=== PATIENT | male | born 1960 | race Caucasian/White ===

== ENCOUNTER 2017-07-02 16:23 | Inpatient (IN) ==
[2017-07-02 17:00] LABS: Basophils % 0.5 %; Eosinophils # 0.4 K/mcL (0.0-0.6); Eosinophils % 5.9 %; Hemoglobin 13.7 g/dL (12.9-16.9); Immature Granulocytes % 0.2 % (0-4); Lymphocytes # 2.1 K/mcL (0.6-4.6); Mean Corpuscular HGB Conc 32.6 g/dL (31.6-35.5); Mean Corpuscular Volume 92.1 fL (83.0-100.0); Mean Platelet Volume 10.5 fL (9.4-12.4); Monocytes # 0.9 K/mcL (0.0-1.3); Monocytes % 14.3 %; Platelet Count 148 K/mcL (140-400); Red Blood Count 4.56 M/mcL (4.19-5.50); Red Cell Distribution Width 14.5 % (11.5-14.5); Segmented Neutrophils % 46.1 %
[2017-07-02 17:06] LABS: Bilirubin,Urine Negative (Negative); Blood,Urine Negative (Negative); Clarity,Urine Clear (Clear); Color,Urine Yellow (Yellow); Glucose,Urine (UA) Normal (Normal); Ketones,Urine Negative (Negative); Leukocyte Esterase,Urine Negative (Negative); Nitrite,Urine Negative (Negative); Protein,Urine Negative (Neg-Trace); Specific Gravity,Urine 1.022 (1.010-1.025); Urobilinogen,Urine Normal (Normal)
[2017-07-02 17:12] LABS: Amphetamine Screen,Urine Negative ng/mL (Cutoff=1000); Barbiturate Screen,Urine Negative ng/mL (Cutoff=200); Benzodiazepines Screen,Urine Negative ng/mL (Cutoff=200); Cannabinoid Screen,Urine Negative ng/mL (Cutoff = 50); Cocaine Screen,Urine Positive ng/mL (Cutoff= 300); Opiate Screen,Urine Negative ng/mL (Cutoff=300); Phencyclidine Screen,Urine Negative ng/mL (Cutoff=25)
[2017-07-02 17:22] LABS: BUN/Creatinine Ratio 19 (6-26); Blood Urea Nitrogen 16 mg/dL (6-20); Carbon Dioxide 29 mEq/L (23-29); Chloride 106 mEq/L (98-107); Glucose 103 mg/dL (70-105); Osmolality,Calculated 291 (280-300); Sodium 140 mEq/L (136-145); eGFR For African Americans > 60 (> 60); eGFR For Non-African Americans > 60 (> 60)
[2017-07-02 17:23] LABS: Acetaminophen < 1.0 mcg/mL (10-30); Ethanol < 10 mg/dL (0-10); Salicylate < 5.0 mg/dL (15.0-30.0)
--- NOTE | 2017-07-02 18:27 | Emergency Department Note ---
Disposition Clinical Impression: Auditory hallucination Disposition: Still a Patient Referrals: NONE,PCP [Primary Care Provider] - Forms: ED Satisfaction Letter Psych HPI - General Chief Complaint: ED Psychiatric Symptoms Stated Complaint: Hearing voices Time Seen by Provider: 07/02/17 16:24 Source: patient Nursing Notes Reviewed: Yes Vital Signs Reviewed: Yes - History of Present Illness HPI Narrative: Presents with auditory hallucinations which has gone on for the last several days the patient has had this in the past and he does have a history of suicidal ideation however is not suicidal at this time. No visual hallucinations. He does have a history of psychiatric disease. He does not have any respiratory symptoms, fevers, blood in the urine or stool. Social history: Stopped smoking 2 days ago, occasional alcohol, states is not used any drugs recently - Related Data Home Medications Medication Instructions Recorded Confirmed Buspirone HCl [Buspar] 10 mg PO TID 01/07/15 02/08/15 Previous Rx's Medication Instructions Recorded Gabapentin [Neurontin] 300 mg PO TID 30 Days capsule 02/12/15 Mirtazapine [Remeron] 15 mg PO HS #30 tablet 02/12/15 Allergies Allergy/AdvReac Type Severity Reaction Status Date / Time quetiapine [From Seroquel] AdvReac Mild Itching Verified 05/19/17 17:03 Review of Systems: Constitutional: No fever Vision: No blurred vision ENT: No rhinorrhea Respiratory: No cough Allergic: No allergies : No blood in urine GI: No blood in stool Hematologic: No bruising Dermatologic: No skin rash Musculoskeletal: No pain in the extremities Neuro: No numbness of the extremities Review of Systems: As Per HPI Past Medical History - Past Medical History Medical history: Reports: hepatitis, liver disease, renal disease, other Surgical history: Reports: cholecystectomy, other Psychiatric history: Reports: anxiety, bipolar, depression, panic disorder, prior suicide attempt, previous psychiatric hospitalization - Social History Smoking Status: Former smoker Smokeless Tobacco Status: No Alcohol use: Reports: none Drug use: Reports: opiates, marijuana Physical Exam CONSTITUTIONAL: Alert and oriented X3, well-nourished, well appearing, in no apparent distress HEAD: Normocephalic; atraumatic. EYES: PERRL, no scleral icterus. NOSE: The nose is normal in appearance without rhinorrhea RESP: Normal chest excursion with respiration; breath sounds clear and equal bilaterally; no wheezes, rhonchi, or rales CARD: Regular rhythm, without murmurs, rub or gallop ABD: Non-distended; non-tender, soft,without rigidity, rebound or guarding SKIN: Normal for age and race; warm and dry; no apparent lesions - General Limitations: no limitations General appearance: alert Course Vital Signs Temperature 98.8 F 07/02/17 17:11 Pulse Rate 88 07/02/17 17:11 Respiratory Rate 18 07/02/17 17:11 Blood Pressure 136/86 07/02/17 17:11 O2 Sat by Pulse Oximetry 96 07/02/17 17:11 Temperature 98.8 F 07/02/17 17:11 Pulse Rate 88 07/02/17 17:11 Respiratory Rate 18 07/02/17 17:11 Blood Pressure 136/86 07/02/17 17:11 O2 Sat by Pulse Oximetry 96 07/02/17 17:11 Oxygen Delivery Oxygen Delivery Room Air Psych - MDM Narrative Medical decision making narrative: patient is bright and alert and wel he does have testing which was ordered and I did review the results and it is positive for cocaine and the patient will be seen by the psychiatric services and disposition pending their assessment. [address] Pressley on change of shift pending 1A eval 1856 - Lab Data Result diagrams: 07/02/17 16:47 07/02/17 16:47 Lab Results 07/02/17 07/02/17 07/02/17 Range/Units 16:47 16:47 16:55 WBC 6.4 (4.3-11.1) K/mcL RBC 4.56 (4.19-5.50) M/mcL Hgb 13.7 (12.9-16.9) g/dL Hct 42.0 (37.5-50.1) % MCV 92.1 (83.0-100.0) fL MCH 30.0 (28.0-33.3) pg MCHC 32.6 (31.6-35.5) g/dL RDW 14.5 (11.5-14.5) % Plt Count 148 (140-400) K/mcL MPV 10.5 (9.4-12.4) fL Immature Gran % 0.2 (0-4) % Seg Neutrophils % 46.1 % Lymphocytes % 33.0 % Monocytes % 14.3 % Eosinophils % 5.9 % Basophils % 0.5 % Neutrophils # 3.0 (1.6-8.9) K/mcL Lymphocytes # 2.1 (0.6-4.6) K/mcL Monocytes # 0.9 (0.0-1.3) K/mcL Eosinophils # 0.4 (0.0-0.6) K/mcL Basophils # 0.0 (0.0-0.2) K/mcL Sodium 140 (136-145) mEq/L Potassium 4.0 (3.5-5.1) mEq/L Chloride 106 (98-107) mEq/L Carbon Dioxide 29 (23-29) mEq/L BUN 16 (6-20) mg/dL Creatinine 0.84 (0.70-1.30) mg/dL Est GFR ( Amer) > 60 (> 60) Est GFR (Non-Af Amer) > 60 (> 60) BUN/Creatinine Ratio 19 (6-26) Glucose 103 (70-105) mg/dL Calculated Osmolality 291 (280-300) Calcium 9.0 (8.6-10.3) mg/dL Urine Color Yellow (Yellow) Urine Clarity Clear (Clear) Urine pH 6.0 (5.0-8.0) pH Units Ur Specific [place] 1.022 (1.010-1.025) Urine Protein Negative (Neg-Trace) mg/dL Urine Glucose (UA) Normal (Normal) mg/dL Urine Ketones Negative (Negative) mg/dL Urine Blood Negative (Negative) Urine Nitrite Negative (Negative) Urine Bilirubin Negative (Negative) Urine Urobilinogen Normal (Normal) mg/dL Ur Leukocyte Esterase Negative (Negative) Salicylates < 5.0 L (15.0-30.0) mg/dL Urine Opiates Screen (Okflxe=910) ng/mL Acetaminophen < 1.0 L (10-30) mcg/mL Ur Barbiturates Screen (Lbsmmc=730) ng/mL Ur Phencyclidine Scrn (Cutoff=25) ng/mL Ur Amphetamines Screen (Fmqvtc=7680) ng/mL U Benzodiazepines Scrn (Duivmn=824) ng/mL Urine Cocaine Screen (Cutoff= 300) ng/mL U Marijuana (THC) Screen (Cutoff = 50) ng/mL Ethyl Alcohol < 10 (0-10) mg/dL 07/02/17 Range/Units 16:55 WBC (4.3-11.1) K/mcL RBC (4.19-5.50) M/mcL Hgb (12.9-16.9) g/dL Hct (37.5-50.1) % MCV (83.0-100.0) fL MCH (28.0-33.3) pg MCHC (31.6-35.5) g/dL RDW (11.5-14.5) % Plt Count (140-400) K/mcL MPV (9.4-12.4) fL Immature Gran % (0-4) % Seg Neutrophils % % Lymphocytes % % Monocytes % % Eosinophils % % Basophils % % Neutrophils # (1.6-8.9) K/mcL Lymphocytes # (0.6-4.6) K/mcL Monocytes # (0.0-1.3) K/mcL Eosinophils # (0.0-0.6) K/mcL Basophils # (0.0-0.2) K/mcL Sodium (136-145) mEq/L Potassium (3.5-5.1) mEq/L Chloride (98-107) mEq/L Carbon Dioxide (23-29) mEq/L BUN (6-20) mg/dL Creatinine (0.70-1.30) mg/dL Est GFR ( Amer) (> 60) Est GFR (Non-Af Amer) (> 60) BUN/Creatinine Ratio (6-26) Glucose (70-105) mg/dL Calculated Osmolality (280-300) Calcium (8.6-10.3) mg/dL Urine Color (Yellow) Urine Clarity (Clear) Urine pH (5.0-8.0) pH Units Ur Specific [place] (1.010-1.025) Urine Protein (Neg-Trace) mg/dL Urine Glucose (UA) (Normal) mg/dL Urine Ketones (Negative) mg/dL Urine Blood (Negative) Urine Nitrite (Negative) Urine Bilirubin (Negative) Urine Urobilinogen (Normal) mg/dL Ur Leukocyte Esterase (Negative) Salicylates (15.0-30.0) mg/dL Urine Opiates Screen Negative (Qkvixr=624) ng/mL Acetaminophen (10-30) mcg/mL Ur Barbiturates Screen Negative (Vatzav=612) ng/mL Ur Phencyclidine Scrn Negative (Cutoff=25) ng/mL Ur Amphetamines Screen Negative (Krtzqa=4630) ng/mL U Benzodiazepines Scrn Negative (Qiwqhf=986) ng/mL Urine Cocaine Screen Positive H (Cutoff= 300) ng/mL U Marijuana (THC) Screen Negative (Cutoff = 50) ng/mL Ethyl Alcohol (0-10) mg/dL Psychiatric Medical Clearance - Medical Clearance Checklist Medical History: Depression (Acute) Polysubstance (including opioids) dependence, binge pattern (Chronic) Abscess and cellulitis (Inactive) Closed fracture of phalanx of right fifth toe (Inactive) Insect bite (Inactive) Suicidal ideation (Inactive) No Social History Section defined Current Vitals: Last Vital Signs Temp 98.8 F 07/02/17 17:11 Pulse 88 07/02/17 17:11 Resp 18 07/02/17 17:11 BP 136/86 07/02/17 17:11 Pulse Ox 96 07/02/17 17:11 Psychiatric Lab Panel: Drug Levels and Toxicity 07/02/17 07/02/17 16:47 16:55 Urine Opiates Screen Negative Acetaminophen < 1.0 L Ur Barbiturates Screen Negative Ur Phencyclidine Scrn Negative Ur Amphetamines Screen Negative U Benzodiazepines Scrn Negative Urine Cocaine Screen Positive H U Marijuana (THC) Screen Negative Ethyl Alcohol < 10 Abnormal Labs: Abnormal lab results Salicylates < 5.0 mg/dL (15.0-30.0) L 07/02/17 16:47 Acetaminophen < 1.0 mcg/mL (10-30) L 07/02/17 16:47 Urine Cocaine Screen Positive ng/mL (Cutoff= 300) H 07/02/17 16:55 Statement of Medical Clearance: I have evaluated the patient, reviewed diagnostic information, and certify that the patient's medical condition is sufficiently stable that transfer to the psychiatric unit does not pose a significant risk of deterioration.
--- NOTE | 2017-07-02 20:53 | Emergency Department Note ---
Disposition Clinical Impression: Auditory hallucination Disposition: Admitted As Inpatient Condition: Fair Referrals: NONE,PCP [Primary Care Provider] - Forms: ED Satisfaction Letter Time of Disposition: 22:02 General Adult HPI - General Chief complaint: ED Psychiatric Symptoms Stated complaint: Hearing voices Time Seen by Provider: 07/02/17 16:24 Source: patient Limitations: no limitations - History of Present Illness Pain Scale: 3 - Related Data Home Medications Medication Instructions Recorded Confirmed Buspirone HCl [Buspar] 10 mg PO TID 01/07/15 02/08/15 Previous Rx's Medication Instructions Recorded Gabapentin [Neurontin] 300 mg PO TID 30 Days capsule 02/12/15 Mirtazapine [Remeron] 15 mg PO HS #30 tablet 02/12/15 Allergies Allergy/AdvReac Type Severity Reaction Status Date / Time quetiapine [From Seroquel] AdvReac Mild Itching Verified 05/19/17 17:03 Past Medical History - Past Medical History Medical history: Reports: hepatitis, liver disease, renal disease, other Surgical history: Reports: cholecystectomy, other Psychiatric history: Reports: anxiety, bipolar, depression, panic disorder, prior suicide attempt, previous psychiatric hospitalization - Social History Smoking Status: Former smoker Smokeless Tobacco Status: No Alcohol use: Reports: none Drug use: Reports: opiates, marijuana Physical Exam - General Limitations: no limitations General appearance: alert Course - Reevaluation(s) Reevaluation #1: Patient signed out pending evaluation by1A. Attempting to place at [facility] at this time. Time: 20:52 Reevaluation #2: 1A to admit Time: 22:02 Vital Signs Temperature 98.8 F 07/02/17 17:11 Pulse Rate 88 07/02/17 17:11 Respiratory Rate 18 07/02/17 17:11 Blood Pressure 136/86 07/02/17 17:11 O2 Sat by Pulse Oximetry 96 07/02/17 17:11 Temperature 98.8 F 07/02/17 17:11 Pulse Rate 88 07/02/17 17:11 Respiratory Rate 18 07/02/17 17:11 Blood Pressure 136/86 07/02/17 17:11 O2 Sat by Pulse Oximetry 96 07/02/17 17:11 Oxygen Delivery Oxygen Delivery Room Air Medical Decision Making - Lab Data Result diagrams: 07/02/17 16:47 07/02/17 16:47 Lab Results 07/02/17 07/02/17 07/02/17 Range/Units 16:47 16:47 16:55 WBC 6.4 (4.3-11.1) K/mcL RBC 4.56 (4.19-5.50) M/mcL Hgb 13.7 (12.9-16.9) g/dL Hct 42.0 (37.5-50.1) % MCV 92.1 (83.0-100.0) fL MCH 30.0 (28.0-33.3) pg MCHC 32.6 (31.6-35.5) g/dL RDW 14.5 (11.5-14.5) % Plt Count 148 (140-400) K/mcL MPV 10.5 (9.4-12.4) fL Immature Gran % 0.2 (0-4) % Seg Neutrophils % 46.1 % Lymphocytes % 33.0 % Monocytes % 14.3 % Eosinophils % 5.9 % Basophils % 0.5 % Neutrophils # 3.0 (1.6-8.9) K/mcL Lymphocytes # 2.1 (0.6-4.6) K/mcL Monocytes # 0.9 (0.0-1.3) K/mcL Eosinophils # 0.4 (0.0-0.6) K/mcL Basophils # 0.0 (0.0-0.2) K/mcL Sodium 140 (136-145) mEq/L Potassium 4.0 (3.5-5.1) mEq/L Chloride 106 (98-107) mEq/L Carbon Dioxide 29 (23-29) mEq/L BUN 16 (6-20) mg/dL Creatinine 0.84 (0.70-1.30) mg/dL Est GFR ( Amer) > 60 (> 60) Est GFR (Non-Af Amer) > 60 (> 60) BUN/Creatinine Ratio 19 (6-26) Glucose 103 (70-105) mg/dL Calculated Osmolality 291 (280-300) Calcium 9.0 (8.6-10.3) mg/dL Urine Color Yellow (Yellow) Urine Clarity Clear (Clear) Urine pH 6.0 (5.0-8.0) pH Units Ur Specific [place] 1.022 (1.010-1.025) Urine Protein Negative (Neg-Trace) mg/dL Urine Glucose (UA) Normal (Normal) mg/dL Urine Ketones Negative (Negative) mg/dL Urine Blood Negative (Negative) Urine Nitrite Negative (Negative) Urine Bilirubin Negative (Negative) Urine Urobilinogen Normal (Normal) mg/dL Ur Leukocyte Esterase Negative (Negative) Salicylates < 5.0 L (15.0-30.0) mg/dL Urine Opiates Screen (Eiydxa=952) ng/mL Acetaminophen < 1.0 L (10-30) mcg/mL Ur Barbiturates Screen (Wiztwb=354) ng/mL Ur Phencyclidine Scrn (Cutoff=25) ng/mL Ur Amphetamines Screen (Zfibaf=1245) ng/mL U Benzodiazepines Scrn (Jxqclh=336) ng/mL Urine Cocaine Screen (Cutoff= 300) ng/mL U Marijuana (THC) Screen (Cutoff = 50) ng/mL Ethyl Alcohol < 10 (0-10) mg/dL 07/02/17 Range/Units 16:55 WBC (4.3-11.1) K/mcL RBC (4.19-5.50) M/mcL Hgb (12.9-16.9) g/dL Hct (37.5-50.1) % MCV (83.0-100.0) fL MCH (28.0-33.3) pg MCHC (31.6-35.5) g/dL RDW (11.5-14.5) % Plt Count (140-400) K/mcL MPV (9.4-12.4) fL Immature Gran % (0-4) % Seg Neutrophils % % Lymphocytes % % Monocytes % % Eosinophils % % Basophils % % Neutrophils # (1.6-8.9) K/mcL Lymphocytes # (0.6-4.6) K/mcL Monocytes # (0.0-1.3) K/mcL Eosinophils # (0.0-0.6) K/mcL Basophils # (0.0-0.2) K/mcL Sodium (136-145) mEq/L Potassium (3.5-5.1) mEq/L Chloride (98-107) mEq/L Carbon Dioxide (23-29) mEq/L BUN (6-20) mg/dL Creatinine (0.70-1.30) mg/dL Est GFR ( Amer) (> 60) Est GFR (Non-Af Amer) (> 60) BUN/Creatinine Ratio (6-26) Glucose (70-105) mg/dL Calculated Osmolality (280-300) Calcium (8.6-10.3) mg/dL Urine Color (Yellow) Urine Clarity (Clear) Urine pH (5.0-8.0) pH Units Ur Specific [place] (1.010-1.025) Urine Protein (Neg-Trace) mg/dL Urine Glucose (UA) (Normal) mg/dL Urine Ketones (Negative) mg/dL Urine Blood (Negative) Urine Nitrite (Negative) Urine Bilirubin (Negative) Urine Urobilinogen (Normal) mg/dL Ur Leukocyte Esterase (Negative) Salicylates (15.0-30.0) mg/dL Urine Opiates Screen Negative (Ehvmnx=201) ng/mL Acetaminophen (10-30) mcg/mL Ur Barbiturates Screen Negative (Jqztlc=019) ng/mL Ur Phencyclidine Scrn Negative (Cutoff=25) ng/mL Ur Amphetamines Screen Negative (Izoqmv=6314) ng/mL U Benzodiazepines Scrn Negative (Ulwkfq=336) ng/mL Urine Cocaine Screen Positive H (Cutoff= 300) ng/mL U Marijuana (THC) Screen Negative (Cutoff = 50) ng/mL Ethyl Alcohol (0-10) mg/dL
[2017-07-02] MEDS ORDERED: Ibuprofen 400 MG TABLET PO PRN (23:33)
[2017-07-02] MEDS ORDERED: *HR* LORazepam 1 MG TABLET PO PRN (23:33)
[2017-07-02] MEDS ORDERED: *HR* LORazepam 2 MG/ML VIAL IM PRN (23:33)
[2017-07-02] MEDS ORDERED: MOM Conc 10 ML UD.LIQ PO PRN (23:33)
[2017-07-02] MEDS ORDERED: hydrOXYzine pamoate 25 MG CAPSULE PO PRN (23:33)
[2017-07-02] MEDS ORDERED: Haloperidol Lactate 5 MG/ML VIAL IM PRN (23:33)
[2017-07-02] MEDS ORDERED: Mag Hydrox/Al Hydrox/Simeth 30 ML UDC PO PRN (23:33)
[2017-07-02] MEDS ORDERED: traZODone 50 MG TABLET PO SCH (23:45)
[2017-07-02] MEDS ORDERED: OLANZapine 10 MG TAB.RAPDIS PO SCH (23:45)
[2017-07-03] MEDS: Gabapentin 400 MG CAPSULE PO SCH ×4 (00:14→21:38)
[2017-07-03] MEDS ORDERED: Lurasidone 20 MG TABLET PO SCH (09:00)
--- NOTE | 2017-07-03 11:33 | Discharge Summary ---
Date of Encounter: 07/03/17 Time of Encounter: 11:30 History of Present Illness Chief complaint: I was hearing voices Admitted From: Emergency Dept History of Present Illness: Mr. Sin is a 56 year old male The patient is 56 years old he lives by himself he is not . He previously lived with a woman for 15 years although she has . The patient was admitted care for 3 days then he went to [facility] in [facility]. He was at [facility] for 10 days. He was told that he could leave [facility] if he was able to sleep for 2 nights. He slept for 2 nights. He returned to his trailer in [facility]. He has 2 dogs and he began hearing voices. Chief complaint I heard voices and I knew I was getting manic. I make bad decisions when I hear voices History of present illness. The patient has a long history of psychiatric illness to briefly summarize the patient was hospitalized at [facility] he went there because his medicines were not working and he was placed on limited to 20 mg he was also recommended to take melatonin. His gabapentin was increased to 800 mg 3 times a day. The patient complained of difficulty with sleep. For reasons unknown to the patient and his cocaine in his urine. The patient had been under the treatment of his primary care PA Feliciano Dias. And he had also seen Dr. Watkins in [place] for Suboxone. His last Suboxone was May [id number] and he went to [facility] saying that he wanted to get off the Suboxone. We began to experience withdrawal syndrome as part of this. The patient was on observation status and will be admitted to a regular admission due to the multiple adverse reactions antipsychotics that I will list below. The patient was 48 years old when he went to [place] for a one-month stay. He reports a psychiatric illness that occurred at that time. He was in [facility] once every 3 months thereafter were and was hard to treat him because he had elevated liver enzymes from hepatitis C that he acquired as a child. When asked about hospitalizations he said they were too numerous to count. At times he tried to kill himself and says that on 2 occasions he woke up after being pronounced [address]. He cannot recall being treated with Narcan. The patient reports manic symptoms but his previous diagnoses years been major depression. Patient has an extensive history of drug abuse and this includes smoking weed at age 13 he used alcohol off and on and started using cocaine in his teens. He tried to avoid sedatives but began in 1999 with pain management. He developed a significant problem with the addiction and abuse of the pills and finally went to heroin in 2002. The patient was started on Suboxone 17 months ago. The patient did have a long period of sobriety at the [employer] [facility] where he worked for 4 years. 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 Past medical history. Surgery gallbladder in 2004. Right knee surgery and childhood. Illnesses hepatitis C he has not been treated with hard bony Polycystic kidney disease without hypertension. Medicines the 2-20 mg every afternoon gabapentin 800 mg 3 times a day Allergies quetiapineitching The 2 bumps around the eyebrows and nausea Haldol no reaction. Patient has never been treated with long-acting injectable medicines he has never been on a trial of lithium Depakote Tegretol lamotrigine that he can recall. Family history was not obtained social history is as above. The patient completed 10th grade he later got a GED he attended college. Review of systems. The patient is on care source. He has attended AA and NA in the past. He has been diagnosed with bipolar disorder and major depressive disorder Past Med Surg Social Fam HX - Past Medical History Source: patient Medical history: hepatitis, liver disease, renal disease, other - Past Psychiatric History Psychiatric history: Reports: anxiety, bipolar, panic disorder, previous psychiatric hospitalization Family psychiatric history: Unknown Family History of Suicide: Unknown - Past Surgical History Surgical History: cholecystectomy, other - Social History Smoking Status: Former smoker Smokeless Tobacco Status: No Alcohol use: none Drug use: opiates, marijuana Medications - Discharge Medications Gabapentin [Neurontin] 800 mg PO TID 07/02/17 [History] Lurasidone [Latuda] 20 mg PO DAILY 07/02/17 [History] 3 Allergy/AdvReac Type Severity Reaction Status Date / Time quetiapine [From Seroquel] AdvReac Mild Itching Verified 05/19/17 17:03 Review of Systems Psychiatric: Reports: depression, auditory hallucinations, mood swings Mental Status Exam - Mental Status Exam Patient orientation: Yes Person, Yes Time, Yes Place Level of alertness: Alert Patient appearance: Unkempt, Disheveled Behavior: nervous Psychomotor activity: Agitated Eye contact: Maintains Eye Contact Mood description: Anxious Affect description: congruent with mood Speech pattern: Normal rate Speech Volume: Normal Thought process: Linear Perceptual Disturbances: Yes Auditory hallucinations Judgment: Limited Results - Vital Signs Vital signs: Temp Pulse Resp BP Pulse Ox 97.8 F 79 16 114/78 96 07/03/17 09:35 07/03/17 09:35 07/03/17 09:35 07/03/17 09:35 07/02/17 17:11 - Drug Levels and Toxicology Drug Levels and Toxicology: Positive for cocaine only, no opiates in urine - Labs Labs: Laboratory Last Values WBC 6.4 K/mcL (4.3-11.1) 07/02/17 16:47 RBC 4.56 M/mcL (4.19-5.50) 07/02/17 16:47 Hgb 13.7 g/dL (12.9-16.9) 07/02/17 16:47 Hct 42.0 % (37.5-50.1) 07/02/17 16:47 MCV 92.1 fL (83.0-100.0) 07/02/17 16:47 MCH 30.0 pg (28.0-33.3) 07/02/17 16:47 MCHC 32.6 g/dL (31.6-35.5) 07/02/17 16:47 RDW 14.5 % (11.5-14.5) 07/02/17 16:47 Plt Count 148 K/mcL (140-400) 07/02/17 16:47 MPV 10.5 fL (9.4-12.4) 07/02/17 16:47 Immature Gran % 0.2 % (0-4) 07/02/17 16:47 Seg Neutrophils % 46.1 % 07/02/17 16:47 Lymphocytes % 33.0 % 07/02/17 16:47 Monocytes % 14.3 % 07/02/17 16:47 Eosinophils % 5.9 % 07/02/17 16:47 Basophils % 0.5 % 07/02/17 16:47 Neutrophils # 3.0 K/mcL (1.6-8.9) 07/02/17 16:47 Lymphocytes # 2.1 K/mcL (0.6-4.6) 07/02/17 16:47 Monocytes # 0.9 K/mcL (0.0-1.3) 07/02/17 16:47 Eosinophils # 0.4 K/mcL (0.0-0.6) 07/02/17 16:47 Basophils # 0.0 K/mcL (0.0-0.2) 07/02/17 16:47 Sodium 140 mEq/L (136-145) 07/02/17 16:47 Potassium 4.0 mEq/L (3.5-5.1) 07/02/17 16:47 Chloride 106 mEq/L (98-107) 07/02/17 16:47 Carbon Dioxide 29 mEq/L (23-29) 07/02/17 16:47 BUN 16 mg/dL (6-20) 07/02/17 16:47 Creatinine 0.84 mg/dL (0.70-1.30) 07/02/17 16:47 Est GFR ( Amer) > 60 (> 60) 07/02/17 16:47 Est GFR (Non-Af Amer) > 60 (> 60) 07/02/17 16:47 BUN/Creatinine Ratio 19 (6-26) 07/02/17 16:47 Glucose 103 mg/dL (70-105) 07/02/17 16:47 Calculated Osmolality 291 (280-300) 07/02/17 16:47 Calcium 9.0 mg/dL (8.6-10.3) 07/02/17 16:47 Urine Color Yellow (Yellow) 07/02/17 16:55 Urine Clarity Clear (Clear) 07/02/17 16:55 Urine pH 6.0 pH Units (5.0-8.0) 07/02/17 16:55 Ur Specific [place] 1.022 (1.010-1.025) 07/02/17 16:55 Urine Protein Negative mg/dL (Neg-Trace) 07/02/17 16:55 Urine Glucose (UA) Normal mg/dL (Normal) 07/02/17 16:55 Urine Ketones Negative mg/dL (Negative) 07/02/17 16:55 Urine Blood Negative (Negative) 07/02/17 16:55 Urine Nitrite Negative (Negative) 07/02/17 16:55 Urine Bilirubin Negative (Negative) 07/02/17 16:55 Urine Urobilinogen Normal mg/dL (Normal) 07/02/17 16:55 Ur Leukocyte Esterase Negative (Negative) 07/02/17 16:55 Salicylates < 5.0 mg/dL (15.0-30.0) L 07/02/17 16:47 Urine Opiates Screen Negative ng/mL (Rccyxd=448) 07/02/17 16:55 Acetaminophen < 1.0 mcg/mL (10-30) L 07/02/17 16:47 Ur Barbiturates Screen Negative ng/mL (Scjuun=295) 07/02/17 16:55 Ur Phencyclidine Scrn Negative ng/mL (Cutoff=25) 07/02/17 16:55 Ur Amphetamines Screen Negative ng/mL (Awejiz=3668) 07/02/17 16:55 U Benzodiazepines Scrn Negative ng/mL (Nlakxv=784) 07/02/17 16:55 Urine Cocaine Screen Positive ng/mL (Cutoff= 300) H 07/02/17 16:55 U Marijuana (THC) Screen Negative ng/mL (Cutoff = 50) 07/02/17 16:55 Ethyl Alcohol < 10 mg/dL (0-10) 07/02/17 16:47 Diagnosis - Discharge Diagnosis (1) Severe recurrent major depressive disorder with psychotic symptoms Status: Acute (2) Adverse effect of unspecified antipsychotics and neuroleptics, initial encounter Status: Acute (3) Uncomplicated opioid dependence Status: Chronic Comments: The patient has had opiate dependence. He is now no longer on Suboxone. However it is not clear that he is a good candidate for naltrexone or methadone. (4) Patient's other noncompliance with medication regimen Status: Acute Comments: The patient is noncompliant and has had multiple hospitalizations. His intermittent use of drugs may lead to noncompliance consequently a long-acting injectable antipsychotic will be sought. He has tolerated haloperidol before (5) Acute hepatitis C without hepatic coma Status: Chronic Comments: The patient is interested in getting treatment for hepatitis C. 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 A long-acting injectable antipsychotic may be helpful to prevent cocaine induced hallucinations. Assessment and Plan - Patient/Caregiver Discharge Instructions Activity: other Diet: regular diet - Follow up Plan Follow up with: NONE,PCP [Primary Care Provider] - Functional capacity at discharge: independent ambulation Overall status at discharge: patient is not back to baseline Disposition: Transfer Psychiatric Hosp Provider Date of admission: 07/02/17 22:10 Primary care physician: PCP NONE Hospital Course Hospital course: Mr. Sin is a 56 year old male - Time Spent with Patient Total time spent providing and/or coordinating discharge services: Quality - Multiple Antipsychotics Patient discharged on 2 or more antipsychotic medications: No
[2017-07-03] MEDS: OLANZapine 10 MG TAB.RAPDIS PO SCH (21:38)
[2017-07-04] MEDS: Gabapentin 400 MG CAPSULE PO SCH ×3 (09:10→20:50)
[2017-07-04] MEDS ORDERED: Haloperidol Decanoate 50 MG/ML VIAL IM ONE (15:00)
--- NOTE | 2017-07-04 16:02 | Psychiatry Progress Note ---
Date of Encounter: 07/04/17 Time of Encounter: 16:00 Subjective Interval history: Patient with Haldol 5 mg twice a day. Last night he got tired and went to sleep. He was hearing voices last night. This morning he woke up and the need another dose of the Haldol and he was sedated and he laid down and he just cannot move his past. He says I cannot go home like this him too tired. The patient did not want to take the Haldol decanoate 50 mg IM today. This is because he thought it made him say and sedated all the time. I explained them the nature of the pharmacotherapy and side effects of Haldol decanoate nonetheless patient wished to decline today's injection. This was discussed with the nurse and was found to be acceptable. The patient wants to Haldol only at night this means he is on Zyprexa and Haldol but the patient's been rather refractory to treatment so consequently we will use of 2 antipsychotics Review of Systems Psychiatric: Reports: depression, auditory hallucinations, mood swings Objective: Exam Level of alertness: Alert Patient appearance: Unkempt Behavior: nervous Psychomotor activity: Normal Eye contact: Minimal Contact Mood description: Anxious Affect description: anxious Speech pattern: Monotone Speech volume: Normal Thought process: Intact, Logical, Linear Thought content: Yes Paranoid delusion Perceptual disturbances: Yes Auditory hallucinations Judgment: Fair Insight: Partial Results - Vital Signs Vital Signs: Temp Pulse Resp BP Pulse Ox 98.9 F 67 16 105/68 96 07/03/17 21:00 07/03/17 21:00 07/03/17 21:00 07/03/17 21:00 07/02/17 17:11 Assessment and Plan (1) Severe recurrent major depressive disorder with psychotic symptoms Current visit: Yes Status: Acute Additional Plan: Zyprexa 20 mg daily at bedtime Haldol 5 mg every afternoon and antidepressant (2) Adverse effect of unspecified antipsychotics and neuroleptics, initial encounter Current visit: Yes Status: Acute Plan: Continue hospitalization, Encourage participation in unit milieu Additional Plan: She reported excessive sedation from Haldol 5 mg twice a day we will reduce the dose because he has no other adverse effects. The patient's Haldol Decanoate will be not given today. I will ask for the physician to consider Haldol Decanoate 50 mg IM every 2 weeks beginning tomorrow. 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
[2017-07-04] MEDS ORDERED: Nicotine 2 MG GUM BC PRN (16:59)
[2017-07-04] MEDS: OLANZapine 10 MG TAB.RAPDIS PO SCH (20:50)
[2017-07-05] MEDS: Gabapentin 400 MG CAPSULE PO SCH ×3 (08:20→21:16)
--- NOTE | 2017-07-05 14:34 | Psychiatry Progress Note ---
Date of Encounter: 07/05/17 Time of Encounter: 14:25 Subjective Interval history: When I met with the patient today he stated "they have me on 2 of those antipsychotic medications now that I am here. I cannot get out of bed. I cannot do anything". I reviewed the patient's medications with him. He said that when he was on Zyprexa alone "I get up the next and I felt good". He states that since they added the Haldol at night, potentially to help him sleep better and not hear voices, he states that he feels very lethargic the next day and cannot do anything. He has a hard time with focus and concentration. He tells me that he does not want or need the Haldol. He states "gabapentin helps me with my mood too". He reviews his substance abuse history having been taken off Suboxone 2 to 3 weeks ago. He knows that some of his mood issues and anxiety are related to still going through opiate withdrawal from detoxing off Suboxone. He also knows that his back pain is also contributing to it being off Suboxone. He states when he discharges, he will talk to his pain management doctor and get his gabapentin adjusted up which will help with his sleep and low back pain. He is uncomfortable sleeping in these beds. He denies any current active suicidal or homicidal ideation. He denies any auditory or visual hallucinations at this time. His mood is feeling less depressed, but states that he is not stable to be discharged and needs futher adjustments to his medications prior to leaving. Review of Systems Psychiatric: Reports: depression, auditory hallucinations, mood swings Objective: Exam Patient orientation: Yes Person, Yes Time, Yes Place Level of alertness: Alert Patient appearance: Appropriate, Well Groomed Behavior: guarded Psychomotor activity: Normal Eye contact: Fleeting Contact Mood description: Anxious Affect description: congruent with mood Speech pattern: Normal rate, Normal rhythm, Normal tone Speech volume: Normal Thought process: Intact, Linear Thought content: Yes Intact Judgment: Fair Insight: Partial Results - Vital Signs Vital Signs: Temp Pulse Resp BP Pulse Ox 98 F 71 18 113/75 96 07/05/17 08:53 07/05/17 08:53 07/05/17 08:53 07/05/17 08:53 07/02/17 17:11 Assessment and Plan (1) Severe recurrent major depressive disorder with psychotic symptoms Current visit: Yes Status: Acute Plan: Continue hospitalization, Close observation, Suicide Precautions per unit protocol, Encourage participation in unit milieu, Group Therapy, Monitor sleep, Monitor appetite Risks, benefits, side effects, alternatives discussed w/pt: Yes Patient agreeable to treatment: Yes Consult Discharge Plan - Plan Referrals: NONE,PCP [Primary Care Provider] -
[2017-07-05] MEDS: Nicotine 21 MG PATCH.TD24 TD SCH (15:50)
[2017-07-05] MEDS: OLANZapine 10 MG TAB.RAPDIS PO SCH (21:17)
[2017-07-06] MEDS: Nicotine 21 MG PATCH.TD24 TD SCH (08:59)
[2017-07-06] MEDS: Gabapentin 400 MG CAPSULE PO SCH ×3 (09:00→21:18)
--- NOTE | 2017-07-06 19:28 | Psychiatry Progress Note ---
Date of Encounter: 07/06/17 Time of Encounter: 17:30 Subjective Interval history: Patient told me that he did not sleep well with the Zyprexa alone. He states that he did fall asleep, but he kept waking up throughout the night. He states that he knows this has a lot to do with his back pain and his 3 ruptured discs. He states he sleeps on a very hard bed at home and does not have that luxury here. He states that he also knows that he is still having issue with sensitivity and withdrawal from opiates, secondary to detoxing off Suboxone 2 to 3 weeks ago. He does state the Zyprexa has helped reduce/no longer having racing thoughts at bed time which does help him sleep faster. He feels less depressed. "I am feeling a whole lot better than I was". He states that his sleep has improved overall with up to 6 hours total, from where it was 3 to 4 hours prior to admission. We discussed the possible use of Cogentin to help with the sleep; if he might be feeling some discomfort secondary to potential akathisia from the Zyprexa. He stated he did not think that is what it was, but he might try Cogentin PRN tonight to see if it helps. He also states that once he is discharged he will go to his pain management doctor to get increase in his gabapentin at night, which might help with the nerve pain, but also he will sleep better in his own bed. He denied any active suicidal ideation or homicidal ideation. He denies any auditory or visual hallucinations. He discussed probable discharge tomorrow, stating that he had housing available and follow-up appointments were being arranged with the school social worker. Review of Systems Psychiatric: Reports: depression, auditory hallucinations, mood swings Objective: Exam Patient orientation: Yes Person, Yes Time, Yes Place, Yes Circumstance Level of alertness: Alert Patient appearance: Appropriate, Well Groomed Behavior: anxious Psychomotor activity: Normal Eye contact: Maintains Eye Contact Mood description: Anxious Affect description: congruent with mood Speech pattern: Normal rate, Normal rhythm, Normal tone, Appropriate Speech volume: Normal Thought process: Intact, Perseveration (on pain and sleep) Thought content: Yes Intact Judgment: Good Insight: Full Results - Vital Signs Vital Signs: Temp Pulse Resp BP Pulse Ox 97.6 F 84 18 120/77 96 07/06/17 09:00 07/06/17 09:00 07/06/17 09:00 07/06/17 09:00 07/02/17 17:11 Assessment and Plan (1) Severe recurrent major depressive disorder with psychotic symptoms Current visit: Yes Status: Acute Plan: Continue hospitalization, Close observation, Encourage participation in unit milieu, Group Therapy, Monitor sleep Risks, benefits, side effects, alternatives discussed w/pt: Yes (discussed use of PRN's for sleep) Patient agreeable to treatment: Yes Consult Discharge Plan - Plan Referrals: NONE,PCP [Primary Care Provider] -
[2017-07-06] MEDS: OLANZapine 10 MG TAB.RAPDIS PO SCH (21:18)
[2017-07-07] MEDS: Nicotine 21 MG PATCH.TD24 TD SCH (08:33)
[2017-07-07] MEDS: Gabapentin 400 MG CAPSULE PO SCH (08:33)
[2017-07-07 09:07] VITALS: BP 112/76
--- NOTE | 2017-07-07 09:52 | Discharge Summary ---
Date of Encounter: 07/07/17 Time of Encounter: 09:45 Diagnosis - Discharge Diagnosis (1) Severe recurrent major depressive disorder with psychotic symptoms Status: Acute Medications - Discharge Medications Prescriptions: Benztropine [Cogentin] 1 mg PO Q4H PRN 30 Days #30 tablet PRN Reason: Extrapyramidal Effects Nicotine Patch [Nicoderm] 21 mg TD DAILY 30 Days #30 patch.[id number] OLANZapine [Zyprexa Zydis] 20 mg PO HS 30 Days #30 tab.rapdis Gabapentin [Neurontin] 600 mg PO TID 07/05/17 [History] Multivitamin [One Daily Essential] 1 tab PO DAILY 07/05/17 [History] Benztropine [Cogentin] 1 mg PO Q4H PRN 30 Days #30 tablet 07/07/17 [Rx] Nicotine Patch [Nicoderm] 21 mg TD DAILY 30 Days #30 patch.[id number] 07/07/17 [Rx] OLANZapine [Zyprexa Zydis] 20 mg PO HS 30 Days #30 tab.rapdis 07/07/17 [Rx] hydrOXYzine pamoate [HydrOXYzine Pamoate] 25 mg PO TID PRN capsule 07/07/17 [Rx ] 3 Allergy/AdvReac Type Severity Reaction Status Date / Time quetiapine [From Seroquel] AdvReac Mild Itching Verified 05/19/17 17:03 Provider Date of admission: 07/03/17 11:32 Primary care physician: PCP NONE Assessment and Plan - Patient/Caregiver Discharge Instructions Activity: resume usual activities as tolerated Diet: regular diet - Follow up Plan Follow up with: [facility] [Outside] - 07/09/17 11:00 am (The above appointment is with [facility] for outpatient mental health and substance abuse counseling services. You will also see Dr. Britton on 07/22/2017 at 7:00pm.) Functional capacity at discharge: independent ambulation Overall status at discharge: Stable Disposition: Home, Self-Care Hospital Course Hospital course: Mr. Sin is a 56 year old male who was admitted for signs of depression and hear voices with thoughts of SI. He was seen and evaluated by the covering psychiatrist at the time and placed on medications targeting symptoms. (See previous coverage notes) The patient tells me today, "I'm doin' good. I feel a lot, lot better". He denies any issues with depression or auditory hallucination or bizarre thoughts. The increased dose of Zyprexa has helped to stabilize his mood and thoughts. He is having some mild anxiety issues that the cogentin helped some with, but did not resolve completely. He was advised to work/discuss this with his outpatient provider further to address this issue as he is stable for discharge and wanting to be discharged; his medications can no longer be adjusted and monitored from this unit. He attended groups and felt as though they were helpful at times. He will continue on his medications as written and will follow up in the community with his assigned providers that are already scheduled. He denies any SI/SIB/HI or A/V hallucinations. Time spent discussing smoking cessation with patient: 3 to 10 minutes Does patient wish to continue nicotine replacement upon disc: Yes - Time Spent with Patient Total time spent providing and/or coordinating discharge services: 20 min Less than 30 minutes Quality - Multiple Antipsychotics Patient discharged on 2 or more antipsychotic medications: No Procedures - Procedures Procedures: Medication Management, Crisis Stabilization, Supportive Therapy, Group Therapy, Psychoeducational Therapy Mental Status Exam - Mental Status Exam Patient orientation: Yes Person, Yes Time, Yes Place, Yes Circumstance Level of alertness: Alert Patient appearance: Appropriate Behavior: calm, cooperative Psychomotor activity: Normal Eye contact: Maintains Eye Contact Mood description: Euthymic/stable, Anxious (mildly) Affect description: congruent with mood Speech pattern: Normal rate, Normal rhythm, Normal tone Speech Volume: Normal Thought process: Intact, Linear, Goal Oriented Thought Content: Yes Intact Judgment: Good Insight: Full
== END 2017-07-07 11:00 | disposition home or self-care (01) | DRG 751 ==
LOC: 1ANU 16:23 → EMEROO 16:23 → 1ANU 22:25 → SUATTDRO 07-03 11:32
PROVIDERS: ADMIT Psychiatry & Neurology Forensic Psychiatry; ATTEND Psychiatry & Neurology Psychiatry

== ENCOUNTER 2017-11-18 10:52 | Inpatient (IN) ==
[2017-11-18 11:35] LABS: Bilirubin,Urine Negative (Negative); Blood,Urine Negative (Negative); Clarity,Urine Clear (Clear); Color,Urine Yellow (Yellow); Glucose,Urine (UA) Normal (Normal); Ketones,Urine Negative (Negative); Leukocyte Esterase,Urine Negative (Negative); Nitrite,Urine Negative (Negative); Protein,Urine Trace mg/dL (Neg-Trace); Specific Gravity,Urine 1.028 (1.010-1.025); Urobilinogen,Urine Normal (Normal)
[2017-11-18 11:37] LABS: Basophils % 0.4 %; Eosinophils # 0.1 K/mcL (0.0-0.6); Eosinophils % 1.3 %; Hematocrit 46.1 % (37.5-50.1); Hemoglobin 15.5 g/dL (12.9-16.9); Immature Granulocytes % 0.3 % (0-4); Lymphocytes % 22.4 %; Mean Corpuscular HGB Conc 33.6 g/dL (31.6-35.5); Mean Corpuscular Hemoglobin 30.2 pg (28.0-33.3); Mean Corpuscular Volume 89.7 fL (83.0-100.0); Mean Platelet Volume 10.2 fL (9.4-12.4); Monocytes # 1.2 K/mcL (0.0-1.3); Monocytes % 13.1 %; Neutrophils # 5.6 K/mcL (1.6-8.9); Nucleated Red Blood Cells 0.2 /100 WBC (0); Platelet Count 178 K/mcL (140-400); Red Blood Count 5.14 M/mcL (4.19-5.50); Red Cell Distribution Width 13.6 % (11.5-14.5); Segmented Neutrophils % 62.5 %
[2017-11-18 11:38] LABS: Bacteria,Urine None Seen per hpf (None-Few); Hyaline Casts,Urine None Seen per lpf (None-Few); Squamous Epithelial Cell,Urine Few per lpf (None-Few); WBC,Urine 0-3 per hpf (0-3)
--- NOTE | 2017-11-18 12:01 | Emergency Department Note ---
Disposition Clinical Impression: Suicidal ideation Bipolar disorder Qualifiers: Active/Remission status: currently active Current bipolar episode type: manic Current episode severity: moderate Qualified Code(s): F31.12 - Bipolar disorder , current episode manic without psychotic features, moderate Disposition: Admitted As Inpatient Condition: Good Referrals: NONE,PCP [Primary Care Provider] - Forms: ED Satisfaction Letter Time of Disposition: 16:34 Psych HPI - General Chief Complaint: ED Psychiatric Symptoms Stated Complaint: SI Time Seen by Provider: 11/18/17 11:01 Source: patient Mode of arrival: ambulatory Limitations: no limitations Nursing Notes Reviewed: Yes Vital Signs Reviewed: Yes - History of Present Illness HPI Narrative: Patient presents emergency room for evaluation of manic episode where he has not been able to sleep for 3 days. Patient does have a history of bipolar. Is on several medications at home for this medical condition. He has had this happen several times in the past but nothing this bad. This morning the symptoms were getting so uncomfortable that he felt like he wanted to take a whole bunch of pills to end his life. Denied any other medication ingestion trauma or injuries. Denies any changes in his medications or lifestyle stressors this point. Currently denying chest pain shortness of breath headache vision changes nausea vomiting or diarrhea. No fevers or chills. Pt complaint: suicidal ideation Onset (ago): day(s) Duration: constant History of similar episodes: Yes Improves with: none Worsens with: none Alleged intoxication: No Associated Psychiatric Symptoms: depression, suicidal ideation, racing thoughts Traumatic symptoms: denies traumatic injury Treatments prior to arrival: none Self harm or harm to others: admits thoughts of self harm, has plan - Related Data Home Medications Medication Instructions Recorded Confirmed Amitriptyline [Elavil] 50 mg PO HS 11/18/17 11/18/17 Gabapentin [Neurontin] 800 mg PO TID 11/18/17 11/18/17 Venlafaxine XR (24 HR) [Effexor Xr] 112.5 mg PO DAILY 11/18/17 11/18/17 fluPHENAZine HCl [Fluphenazine HCl] 2 mg PO HS 11/18/17 11/18/17 Previous Rx's Medication Instructions Recorded hydrOXYzine pamoate [HydrOXYzine 25 mg PO TID PRN capsule 07/07/17 Pamoate] Allergies Allergy/AdvReac Type Severity Reaction Status Date / Time quetiapine [From Seroquel] AdvReac Mild Itching Verified 11/18/17 15:58 All systems ED: reviewed and negative except as stated. Review of Systems: As Per HPI Constitutional: Denies: fever, chills Cardiovascular: Denies: chest pain, palpitations, dyspnea on exertion, orthopnea Respiratory: Denies: cough, dyspnea, wheezes Gastrointestinal: Denies: abdominal pain, nausea, vomiting, diarrhea, constipation Genitourinary: Denies: dysuria, frequency Musculoskeletal: Denies: back pain, neck pain Integumentary: Denies: rash Neurological: Denies: headache, weakness Psychiatric: Reports: depression, suicidal thoughts Past Medical History - Past Medical History Attestation: Yes The following information was validated with the patient. Source: patient Medical history: Reports: hepatitis, liver disease, renal disease, other Surgical history: Reports: cholecystectomy, other Psychiatric history: Reports: anxiety, bipolar, panic disorder, previous psychiatric hospitalization - Social History Smoking Status: Former smoker Smokeless Tobacco Status: No Alcohol use: Reports: none Drug use: Reports: opiates, marijuana Physical Exam - General Limitations: no limitations General appearance: alert, anxious - Eye Eye exam: Present: normal appearance, PERRL, EOMI - Chest Chest inspection: Present: normal inspection, symmetric chest wall rise - Respiratory Respiratory exam: Present: normal lung sounds bilaterally - Cardiovascular Cardiovascular exam: Present: regular rate, normal rhythm, normal heart sounds - Abdominal Exam Abdominal exam: Present: soft, Non-Tender. Absent: tenderness, distention, guarding, rebound, rigidity - Extremities Exam Extremities exam: Present: normal inspection, full ROM, normal capillary refill. Absent: tenderness - Back Exam Back exam: Present: normal inspection - Neurological Exam Neurological exam: Present: alert, oriented X3, CN II-XII intact, normal gait - Psychiatric Psychiatric exam: Present: manic, suicidal ideation - Skin Skin exam: Present: warm, dry, intact, normal color Course Course Narrative: Patient seen and examined the time of arrival. See history of present illness. 56-year-old male with known history of bipolar that is managed by outside psychiatric team presents here today for what he describes as a manic episode causing him to be awake for the last 3 days. He has not been able to sleep. This morning, the patient has had persistently worsening suicidal ideation thinking that he is going to take all his medications attempt to kill himself because he is too agitated and unable to sleep. Patient denies any chest pain shortness of breath headache vision changes nausea vomiting or diarrhea. No fevers or chills. No medication changes. Denies any significant changes in his life for life stressors. Medical clearance will be completed this time. Physical exam is unremarkable. Patient is alert he is oriented he follows commands. Lungs are clear heart is regular abdomen is soft nontender nondistended with no guarding no rigidity and no peritoneal symptoms. Otherwise patient is in no distress. Medical clearance to be completed. Psychiatric team will evaluate. Patient is accommodating for this evaluation this time. No other acute concerns or issues. - Reevaluation(s) Reevaluation #1: Psychiatric team has been contacted this time since the patient's medical clearance has been completed. They will come up and evaluated the patient Time: 14:40 Reevaluation #2: Patient accepted by one a for admission. No other acute issues noted this time. Time: 16:34 Vital Signs Temperature 97.6 F 11/18/17 10:53 Pulse Rate 107 11/18/17 10:53 Respiratory Rate 18 11/18/17 10:53 Blood Pressure 136/89 11/18/17 10:53 O2 Sat by Pulse Oximetry 99 11/18/17 10:53 Temperature 98.5 F 11/18/17 16:24 Pulse Rate 86 11/18/17 16:24 Respiratory Rate 18 11/18/17 16:24 Blood Pressure 125/83 11/18/17 16:24 O2 Sat by Pulse Oximetry 96 11/18/17 16:24 Oxygen Delivery Oxygen Delivery Room Air Psych - MDM Narrative Medical decision making narrative: Bipolar, manic episode, suicidal ideation - Medical Records Medical records reviewed: Yes I reviewed the patient's medical records. - Lab Data Lab results reviewed: Yes I reviewed the patient's lab results. Result diagrams: 11/18/17 11:29 11/18/17 11:29 Lab Results 11/18/17 11/18/17 11/18/17 Range/Units 11:15 11:15 11:29 WBC 8.9 (4.3-11.1) K/mcL RBC 5.14 (4.19-5.50) M/mcL Hgb 15.5 (12.9-16.9) g/dL Hct 46.1 (37.5-50.1) % MCV 89.7 (83.0-100.0) fL MCH 30.2 (28.0-33.3) pg MCHC 33.6 (31.6-35.5) g/dL RDW 13.6 (11.5-14.5) % Plt Count 178 (140-400) K/mcL MPV 10.2 (9.4-12.4) fL Immature Gran % 0.3 (0-4) % Seg Neutrophils % 62.5 % Lymphocytes % 22.4 % Monocytes % 13.1 % Eosinophils % 1.3 % Basophils % 0.4 % Neutrophils # 5.6 (1.6-8.9) K/mcL Lymphocytes # 2.0 (0.6-4.6) K/mcL Monocytes # 1.2 (0.0-1.3) K/mcL Eosinophils # 0.1 (0.0-0.6) K/mcL Basophils # 0.0 (0.0-0.2) K/mcL Nucleated RBCs/100 WBC 0.2 H (0) /100 WBC Sodium (136-145) mEq/L Potassium (3.5-5.1) mEq/L Chloride (98-107) mEq/L Carbon Dioxide (23-29) mEq/L BUN (6-20) mg/dL Creatinine (0.70-1.30) mg/dL Est GFR ( Amer) (> 60) Est GFR (Non-Af Amer) (> 60) BUN/Creatinine Ratio (6-26) Glucose (70-105) mg/dL Calculated Osmolality (280-300) Calcium (8.6-10.3) mg/dL Urine Color Yellow (Yellow) Urine Clarity Clear (Clear) Urine pH 7.0 (5.0-8.0) pH Units Ur Specific [place] 1.028 H (1.010-1.025) Urine Protein Trace (Neg-Trace) mg/dL Urine Glucose (UA) Normal (Normal) mg/dL Urine Ketones Negative (Negative) mg/dL Urine Blood Negative (Negative) Urine Nitrite Negative (Negative) Urine Bilirubin Negative (Negative) Urine Urobilinogen Normal (Normal) mg/dL Ur Leukocyte Esterase Negative (Negative) Urine Microscopic RBC 3-5 H (0-3) per hpf Urine Microscopic WBC 0-3 (0-3) per hpf Ur Squamous Epith Cells Few (None-Few) per lpf Urine Bacteria None Seen (None-Few) per hpf Hyaline Casts None Seen (None-Few) per lpf Salicylates (15.0-30.0) mg/dL Urine Opiates Screen Negative (Huvvkk=890) ng/mL Acetaminophen (10-20) mcg/mL Ur Barbiturates Screen Negative (Ixdzja=532) ng/mL Ur Phencyclidine Scrn Positive H (Cutoff=25) ng/mL Ur Amphetamines Screen Negative (Nhxyid=6122) ng/mL U Benzodiazepines Scrn Negative (Hsdlcw=448) ng/mL Urine Cocaine Screen Negative (Cutoff= 300) ng/mL U Marijuana (THC) Screen Negative (Cutoff = 50) ng/mL Ethyl Alcohol (Less than 10) mg/dL 11/18/17 Range/Units 11:29 WBC (4.3-11.1) K/mcL RBC (4.19-5.50) M/mcL Hgb (12.9-16.9) g/dL Hct (37.5-50.1) % MCV (83.0-100.0) fL MCH (28.0-33.3) pg MCHC (31.6-35.5) g/dL RDW (11.5-14.5) % Plt Count (140-400) K/mcL MPV (9.4-12.4) fL Immature Gran % (0-4) % Seg Neutrophils % % Lymphocytes % % Monocytes % % Eosinophils % % Basophils % % Neutrophils # (1.6-8.9) K/mcL Lymphocytes # (0.6-4.6) K/mcL Monocytes # (0.0-1.3) K/mcL Eosinophils # (0.0-0.6) K/mcL Basophils # (0.0-0.2) K/mcL Nucleated RBCs/100 WBC (0) /100 WBC Sodium 137 (136-145) mEq/L Potassium 3.8 (3.5-5.1) mEq/L Chloride 104 (98-107) mEq/L Carbon Dioxide 27 (23-29) mEq/L BUN 19 (6-20) mg/dL Creatinine 1.03 (0.70-1.30) mg/dL Est GFR ( Amer) > 60 (> 60) Est GFR (Non-Af Amer) > 60 (> 60) BUN/Creatinine Ratio 18 (6-26) Glucose 94 (70-105) mg/dL Calculated Osmolality 286 (280-300) Calcium 9.4 (8.6-10.3) mg/dL Urine Color (Yellow) Urine Clarity (Clear) Urine pH (5.0-8.0) pH Units Ur Specific [place] (1.010-1.025) Urine Protein (Neg-Trace) mg/dL Urine Glucose (UA) (Normal) mg/dL Urine Ketones (Negative) mg/dL Urine Blood (Negative) Urine Nitrite (Negative) Urine Bilirubin (Negative) Urine Urobilinogen (Normal) mg/dL Ur Leukocyte Esterase (Negative) Urine Microscopic RBC (0-3) per hpf Urine Microscopic WBC (0-3) per hpf Ur Squamous Epith Cells (None-Few) per lpf Urine Bacteria (None-Few) per hpf Hyaline Casts (None-Few) per lpf Salicylates < 2.5 L (15.0-30.0) mg/dL Urine Opiates Screen (Vzgdoi=414) ng/mL Acetaminophen < 3 L (10-20) mcg/mL Ur Barbiturates Screen (Glbpwk=334) ng/mL Ur Phencyclidine Scrn (Cutoff=25) ng/mL Ur Amphetamines Screen (Zeojea=7061) ng/mL U Benzodiazepines Scrn (Kurjnk=859) ng/mL Urine Cocaine Screen (Cutoff= 300) ng/mL U Marijuana (THC) Screen (Cutoff = 50) ng/mL Ethyl Alcohol < 10 (Less than 10) mg/dL Psychiatric Medical Clearance - Medical Clearance Checklist Does the patient have a NEW psychiatric condition?: No Any abnormalities indicating possible medical illness?: No Any history of medical issues?: No Medical History: No Social History Section defined Any abnormal vital signs prior to transfer?: No Current Vitals: Last Vital Signs Temp 98.5 F 11/18/17 16:24 Pulse 86 11/18/17 16:24 Resp 18 11/18/17 16:24 BP 125/83 11/18/17 16:24 Pulse Ox 96 11/18/17 16:24 Is the patient intoxicated or cognitively impaired?: No Psychiatric Lab Panel: Drug Levels and Toxicity 11/18/17 11/18/17 11:15 11:29 Urine Opiates Screen Negative Acetaminophen < 3 L Ur Barbiturates Screen Negative Ur Phencyclidine Scrn Positive H Ur Amphetamines Screen Negative U Benzodiazepines Scrn Negative Urine Cocaine Screen Negative U Marijuana (THC) Screen Negative Ethyl Alcohol < 10 Any abnormalities on the physical exam?: No Any abnormal labs?: No Abnormal Labs: Abnormal lab results Nucleated RBCs/100 WBC 0.2 /100 WBC (0) H 11/18/17 11:29 Ur Specific [place] 1.028 (1.010-1.025) H 11/18/17 11:15 Urine Microscopic RBC 3-5 per hpf (0-3) H 11/18/17 11:15 Salicylates < 2.5 mg/dL (15.0-30.0) L 11/18/17 11:29 Acetaminophen < 3 mcg/mL (10-20) L 11/18/17 11:29 Ur Phencyclidine Scrn Positive ng/mL (Cutoff=25) H 11/18/17 11:15 Does the patient require durable medical equiptment?: No Is the patient ambulatory?: Yes Is the patient a fall risk?: No Has the patient been medically cleared?: Yes Statement of Medical Clearance: I have evaluated the patient, reviewed diagnostic information, and certify that the patient's medical condition is sufficiently stable that transfer to the psychiatric unit does not pose a significant risk of deterioration.
[2017-11-18 12:45] LABS: Amphetamine Screen,Urine Negative ng/mL (Cutoff=1000); Barbiturate Screen,Urine Negative ng/mL (Cutoff=200); Benzodiazepines Screen,Urine Negative ng/mL (Cutoff=200); Cannabinoid Screen,Urine Negative ng/mL (Cutoff = 50); Cocaine Screen,Urine Negative ng/mL (Cutoff= 300); Opiate Screen,Urine Negative ng/mL (Cutoff=300)
[2017-11-18 13:17] LABS: Acetaminophen < 3 mcg/mL (10-20); BUN/Creatinine Ratio 18 (6-26); Blood Urea Nitrogen 19 mg/dL (6-20); Calcium 9.4 mg/dL (8.6-10.3); Carbon Dioxide 27 mEq/L (23-29); Chloride 104 mEq/L (98-107); Ethanol < 10 mg/dL (Less than 10); Glucose 94 mg/dL (70-105); Osmolality,Calculated 286 (280-300); Potassium 3.8 mEq/L (3.5-5.1); Sodium 137 mEq/L (136-145); eGFR For African Americans > 60 (> 60); eGFR For Non-African Americans > 60 (> 60)
[2017-11-18 14:28] LABS: Salicylate < 2.5 mg/dL (15.0-30.0)
[2017-11-18] MEDS ORDERED: Ibuprofen 600 MG TABLET PO ONE (15:12)
[2017-11-18] MEDS ORDERED: Ibuprofen 400 MG TABLET PO PRN (17:44)
[2017-11-18] MEDS ORDERED: *HR* LORazepam 1 MG TABLET PO PRN (17:44)
[2017-11-18] MEDS ORDERED: Haloperidol Lactate 5 MG/ML VIAL IM PRN (17:44)
[2017-11-18] MEDS ORDERED: *HR* LORazepam 2 MG/ML VIAL IM PRN (17:44)
--- NOTE | 2017-11-18 18:56 | Psychiatry History & Physical ---
Date of Encounter: 11/18/17 Time of Encounter: 18:30 History of Present Illness Medicare Admission Attestation: For traditional Medicare patients the provided hospital inpatient services are reasonable and necessary and in the case of services not specified as inpatient -only under 42 CFR 419.22 (n), that they are appropriately provided as inpatient services in accordance 42 CFR 412.3. For Critical Access Hospital the patient may reasonably be expected to be discharged or transferred to a hospital within 96 hours after admission to the Critical Access Hospital. Admitted From: Emergency Dept Plans for Post Hospital Care: Home History of Present Illness: Patient presents emergency room for evaluation of manic episode where he has not been able to sleep for 3 days. Patient does have a history of bipolar. Is on several medications at home for this medical condition. He has had this happen several times in the past but nothing this bad. This morning the symptoms were getting so uncomfortable that he felt like he wanted to take a whole bunch of pills to end his life. Denied any other medication ingestion trauma or injuries. Denies any changes in his medications or lifestyle stressors this point. Currently denying chest pain shortness of breath headache vision changes nausea vomiting or diarrhea. No fevers or chills. Pt is a 56 yo ,, male, never , with no children, who presents for exacerbation of Bipolar D/O type 1 currently mixed state with suicidal ideations . Pt noted he currently lives in [place], [place] alone. Pt noted recent exacerbation of depression. Pt noted "when I came in I thought I wanted to hurt myself I had a bunch of sleeping pills sitting out." Pt noted I came in because I needed some help I feel much better now. I feel safe and comfortable on the unit. Pt denied any side effects to current medications. Pt was in agreement with current treatment plan. Pt noted that he is doing alright today. Pt noted he slept 6 hours broken night. Pt noted his appetite is its down. Pt rated his depression a 8, on a scale of zero to ten with ten being the worst and zero being none. Pt rate his anxiety a 8, on the same scale. Pt denied any auditory or visual hallucinations. Pt denied any current thoughts to anyone else. "I have occiasional thoughts to harm myself but I wont do anything on the unit....If I get bad I will tell someone." Pt noted that his mother is passed of a [place], my father of diabetes. Pt noted he has 2 brothers and a sister who he does not remain in contact with. Pt noted that his highest level of education is 10th grade with a GED and 3 years of college. Pt noted he is currently unemployed and receives SSDI. Pt denied any inpt psychiatric hospitalizations. Pt noted multiple previous suicide attempts, most recent 2 years ago i shot a my self up with dish washing detergent. Pt denied any family hx of suicides. PT denied any family mental health hx of depression and anxiety. 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 Pt denied any hx of seizures or HIV. No TD noted, AIMS=0 MSE: Alert and Oriented x3 Appearance: appropriately groomed dressed in civilian attire Behavior: Polite, friendly, courteous Speech: fluent, normal tone, normal rate Mood: better but I am depression Affect: mood congruent Thought content: no HI noted, no SI noted, no delusions noted Psychosis: none noted, currently does not appear to be responding to internal stimuli. Thought Process: linear logical, goal directed Judgment: fair. Insight: fair. Assessment/Plan 1.Interval hx 2.Continue current medications 3.Review current labs 4.Pt had an opportunity to ask questions and discuss current treatment plan. 5.Supportive therapy was provided 6.Pt encouraged to consider group or individual therapy 7.Pt was in agreement with treatment plan. 8.Pt was educated on the risks benefits and side effects of current medications. 9. Increase fluphenazine to 5 mg PO QHS for mood. Past Med Surg Social Fam HX - Past Medical History Medical history: hepatitis, liver disease, renal disease, other - Past Psychiatric History Psychiatric history: Reports: anxiety, depression Family psychiatric history: Yes Family History of Suicide: None - Past Surgical History Surgical History: cholecystectomy, other - Social History Smoking Status: Current every day smoker Smokeless Tobacco Status: No Alcohol use: none Drug use: none Medications & Allergies hydrOXYzine pamoate [HydrOXYzine Pamoate] 25 mg PO TID PRN capsule 07/07/17 [Rx ] Amitriptyline [Elavil] 50 mg PO HS 11/18/17 [History] Gabapentin [Neurontin] 800 mg PO TID 11/18/17 [History] Venlafaxine XR (24 HR) [Effexor Xr] 112.5 mg PO DAILY 11/18/17 [History] fluPHENAZine HCl [Fluphenazine HCl] 2 mg PO HS 11/18/17 [History] 3 Allergy/AdvReac Type Severity Reaction Status Date / Time quetiapine [From Seroquel] AdvReac Mild Itching Verified 11/18/17 15:58 trazodone AdvReac Mild Itching Verified 11/18/17 18:52 Review of Systems Constitutional: Denies: fever, chills, weakness, weight change Eyes: Denies: eye pain, vision change Ears, Nose, Throat: Denies: ear pain, throat pain, dental pain, hearing loss, congestion Cardiovascular: Denies: chest pain, palpitations, dyspnea on exertion Respiratory: Denies: cough, dyspnea, wheezes Gastrointestinal: Denies: abdominal pain, nausea, vomiting, diarrhea, constipation Genitourinary male: Denies: urgency, dysuria, frequency, genital lesions Musculoskeletal: Denies: joint swelling, joint pain Integumentary: Denies: rash, lesions, pruritus Neurological: Denies: headache, weakness, numbness, memory loss Psychiatric: Reports: depression, anxiety, abnormal sleep pattern, suicidal ideation, change in appetite, difficulty concentrating, mood swings Endocrine: Denies: fatigue, heat or cold intolerance Hematologic/Lymphatic: Denies: easy bruising, lymphadenopathy Allergic/Immunologic: Denies: urticaria, itchy eyes Exam - HEENT Head exam IM: Present: atraumatic Eye exam IM: Present: EOMI, normal appearance, PERRL ENT exam IM: Present: normal exam - Neurological Neurological exam: Present: CN II-XII intact - Respiratory Respiratory exam IM: Present: CTAB - GI/Abdominal GI/Abdominal exam IM: Present: normal bowel sounds, soft. Absent: tenderness - Extremities Extremities exam IM: Present: full ROM - Skin Skin exam IM: Present: dry, warm - Constitutional Vitals: Temp Pulse Resp BP Pulse Ox 98.8 F 84 18 131/97 96 11/18/17 17:05 11/18/17 17:05 11/18/17 17:05 11/18/17 17:05 11/18/17 16:24 General appearance: age & developmentally appropriate, well-groomed, well- nourished - Musculoskeletal Gait: normal Station: relaxed Strength & Tone: normal for patient - Psychiatric Patient Orientation: Yes Person, Yes Time, Yes Place Level of alertness: Alert Behavior: calm, cooperative, anxious, tearful, restless Psychomotor activity: Normal Eye Contact: Maintains Eye Contact Mood Description: Euthymic/stable Affect description: congruent with mood, full range Speech Volume: Normal Speech pattern: normal rate, normal rhythm, normal tone, fluent, spontaneous Language & Vocabulary: consistent with education Thought Process: Linear, Goal Oriented Thought Content: Yes Suicidal ideation ( ), No Homicidal ideation, No Overt delusions Perceptual Disturbances: No Auditory hallucinations, No Visual hallucinations Attention Span Ability: Capable of Focused Attention Memory Description: Grossly Intact Patient Reliability: Reliable Historian Fund of knowledge: Yes abstraction ability, Yes average, Yes aware of current events Intelligence Estimate: Average Judgment: Limited Insight: Partial Results - Labs Labs: Laboratory Last Values WBC 8.9 K/mcL (4.3-11.1) 11/18/17 11:29 RBC 5.14 M/mcL (4.19-5.50) 11/18/17 11:29 Hgb 15.5 g/dL (12.9-16.9) 11/18/17 11:29 Hct 46.1 % (37.5-50.1) 11/18/17 11:29 MCV 89.7 fL (83.0-100.0) 11/18/17 11:29 MCH 30.2 pg (28.0-33.3) 11/18/17 11:29 MCHC 33.6 g/dL (31.6-35.5) 11/18/17 11:29 RDW 13.6 % (11.5-14.5) 11/18/17 11:29 Plt Count 178 K/mcL (140-400) 11/18/17 11:29 MPV 10.2 fL (9.4-12.4) 11/18/17 11:29 Immature Gran % 0.3 % (0-4) 11/18/17 11:29 Seg Neutrophils % 62.5 % 11/18/17 11:29 Lymphocytes % 22.4 % 11/18/17 11:29 Monocytes % 13.1 % 11/18/17 11:29 Eosinophils % 1.3 % 11/18/17 11:29 Basophils % 0.4 % 11/18/17 11:29 Neutrophils # 5.6 K/mcL (1.6-8.9) 11/18/17 11:29 Lymphocytes # 2.0 K/mcL (0.6-4.6) 11/18/17 11:29 Monocytes # 1.2 K/mcL (0.0-1.3) 11/18/17 11:29 Eosinophils # 0.1 K/mcL (0.0-0.6) 11/18/17 11:29 Basophils # 0.0 K/mcL (0.0-0.2) 11/18/17 11:29 Nucleated RBCs/100 WBC 0.2 /100 WBC (0) H 11/18/17 11:29 Sodium 137 mEq/L (136-145) 11/18/17 11:29 Potassium 3.8 mEq/L (3.5-5.1) 11/18/17 11:29 Chloride 104 mEq/L (98-107) 11/18/17 11:29 Carbon Dioxide 27 mEq/L (23-29) 11/18/17 11:29 BUN 19 mg/dL (6-20) 11/18/17 11:29 Creatinine 1.03 mg/dL (0.70-1.30) 11/18/17 11:29 Est GFR ( Amer) > 60 (> 60) 11/18/17 11:29 Est GFR (Non-Af Amer) > 60 (> 60) 11/18/17 11:29 BUN/Creatinine Ratio 18 (6-26) 11/18/17 11:29 Glucose 94 mg/dL (70-105) 11/18/17 11:29 Calculated Osmolality 286 (280-300) 11/18/17 11:29 Calcium 9.4 mg/dL (8.6-10.3) 11/18/17 11:29 Urine Color Yellow (Yellow) 11/18/17 11:15 Urine Clarity Clear (Clear) 11/18/17 11:15 Urine pH 7.0 pH Units (5.0-8.0) 11/18/17 11:15 Ur Specific [place] 1.028 (1.010-1.025) H 11/18/17 11:15 Urine Protein Trace mg/dL (Neg-Trace) 11/18/17 11:15 Urine Glucose (UA) Normal mg/dL (Normal) 11/18/17 11:15 Urine Ketones Negative mg/dL (Negative) 11/18/17 11:15 Urine Blood Negative (Negative) 11/18/17 11:15 Urine Nitrite Negative (Negative) 11/18/17 11:15 Urine Bilirubin Negative (Negative) 11/18/17 11:15 Urine Urobilinogen Normal mg/dL (Normal) 11/18/17 11:15 Ur Leukocyte Esterase Negative (Negative) 11/18/17 11:15 Urine Microscopic RBC 3-5 per hpf (0-3) H 11/18/17 11:15 Urine Microscopic WBC 0-3 per hpf (0-3) 11/18/17 11:15 Ur Squamous Epith Cells Few per lpf (None-Few) 11/18/17 11:15 Urine Bacteria None Seen per hpf (None-Few) 11/18/17 11:15 Hyaline Casts None Seen per lpf (None-Few) 11/18/17 11:15 Salicylates < 2.5 mg/dL (15.0-30.0) L 11/18/17 11:29 Urine Opiates Screen Negative ng/mL (Pnrjdd=108) 11/18/17 11:15 Acetaminophen < 3 mcg/mL (10-20) L 11/18/17 11:29 Ur Barbiturates Screen Negative ng/mL (Ukqtbg=364) 11/18/17 11:15 Ur Phencyclidine Scrn Positive ng/mL (Cutoff=25) H 11/18/17 11:15 Ur Amphetamines Screen Negative ng/mL (Wsgqye=7460) 11/18/17 11:15 U Benzodiazepines Scrn Negative ng/mL (Axoifc=575) 11/18/17 11:15 Urine Cocaine Screen Negative ng/mL (Cutoff= 300) 11/18/17 11:15 U Marijuana (THC) Screen Negative ng/mL (Cutoff = 50) 11/18/17 11:15 Ethyl Alcohol < 10 mg/dL (Less than 10) 11/18/17 11:29 Assessment and Plan (1) Suicidal ideation Current visit: Yes Status: Acute Plan: Admit inpatient for safety and stabilization, Close observation, Suicide Precautions per unit protocol, Encourage participation in unit milieu, Group Therapy, Monitor sleep, Monitor appetite Risks, benefits, side effects, alternatives discussed w/pt: Yes Patient agreeable to treatment: Yes Plans for Post Hospital Care: Home (2) Bipolar disorder Current visit: Yes Status: Acute Plan: Admit inpatient for safety and stabilization, Close observation, Suicide Precautions per unit protocol, Encourage participation in unit milieu, Group Therapy, Monitor sleep, Monitor appetite Risks, benefits, side effects, alternatives discussed w/pt: Yes Patient agreeable to treatment: Yes Plans for Post Hospital Care: Home Qualifiers: Active/Remission status: currently active Current bipolar episode type: mixed Current episode severity: moderate Qualified Code(s): F31.62 - Bipolar disorder, current episode mixed, moderate
[2017-11-18] MEDS ORDERED: *HR* LORazepam 1 MG TABLET PO ONE (19:14)
[2017-11-18] MEDS ORDERED: FLUPHENAZINE HCL 2 MG PO SCH (21:00)
[2017-11-18] MEDS: Gabapentin 400 MG CAPSULE PO SCH (21:02)
[2017-11-18] MEDS: Nicotine 14 MG PATCH.TD24 TD SCH (21:29)
[2017-11-19] MEDS: Nicotine 14 MG PATCH.TD24 TD SCH (09:35)
[2017-11-19] MEDS: Gabapentin 400 MG CAPSULE PO SCH ×3 (09:36→20:29)
[2017-11-19] MEDS: Venlafaxine XR (24 HR) 37.5 MG CAP.ER.24H PO SCH (09:36)
--- NOTE | 2017-11-19 10:46 | Psychiatry Progress Note ---
Date of Encounter: 11/19/17 Time of Encounter: 10:15 Subjective Interval history: Pt is a 56 yo ,, male, never , with no children, who presents for exacerbation of Bipolar D/O type 1 currently mixed state with suicidal ideations . Pt noted he currently lives in [place], [place] alone. Pt noted recent exacerbation of depression. Pt noted "when I came in I thought I wanted to hurt myself I had a bunch of sleeping pills sitting out." Pt noted I am feeling much better now. I feel safe and comfortable on the unit. Pt denied any side effects to current medications. Pt continues to remain in agreement with current treatment plan. Pt noted that he is doing alright today. Pt noted he slept 6-8 hours broken night. Pt noted his appetite is its down. Pt rated his depression a 6, on a scale of zero to ten with ten being the worst and zero being none. Pt rate his anxiety a 8, on the same scale. Pt denied any auditory or visual hallucinations. Pt denied any current thoughts to anyone else. 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 Pt denied any hx of seizures or HIV. No TD noted, AIMS=0 MSE: Alert and Oriented x3 Appearance: appropriately groomed dressed in civilian attire Behavior: Polite, friendly, courteous Speech: fluent, normal tone, normal rate Mood: better but I am still depression Affect: mood congruent Thought content: no HI noted, no SI noted, no delusions noted Psychosis: none noted, currently does not appear to be responding to internal stimuli. Thought Process: linear logical, goal directed Judgment: fair. Insight: fair. Assessment/Plan 1.Interval hx 2.Continue current medications 3.Review current labs 4.Pt had an opportunity to ask questions and discuss current treatment plan. 5.Supportive therapy was provided 6.Pt encouraged to consider group or individual therapy 7.Pt was in agreement with treatment plan. 8.Pt was educated on the risks benefits and side effects of current medications. Review of Systems Constitutional: Denies: fever, chills, weakness, weight change Eyes: Denies: eye pain, vision change Ears, Nose, Throat: Denies: ear pain, throat pain, dental pain, hearing loss, congestion Cardiovascular: Denies: chest pain, palpitations, dyspnea on exertion Respiratory: Denies: cough, dyspnea, wheezes Gastrointestinal: Denies: abdominal pain, nausea, vomiting, diarrhea, constipation Musculoskeletal: Denies: joint swelling, joint pain Neurological: Denies: headache, weakness, numbness, memory loss Psychiatric: Reports: depression, anxiety, abnormal sleep pattern, suicidal ideation, change in appetite, difficulty concentrating, mood swings Results - Vital Signs Vital Signs: Temp Pulse Resp BP Pulse Ox 98.1 F 96 18 111/83 96 11/19/17 09:00 11/19/17 09:00 11/19/17 09:00 11/19/17 09:00 11/18/17 16:24 Assessment and Plan (1) Suicidal ideation Current visit: Yes Status: Acute Plan: Continue hospitalization, Close observation, Suicide Precautions per unit protocol, Encourage participation in unit milieu, Group Therapy, Monitor sleep, Monitor appetite Risks, benefits, side effects, alternatives discussed w/pt: Yes Patient agreeable to treatment: Yes (2) Bipolar disorder Current visit: Yes Status: Acute Plan: Continue hospitalization, Close observation, Suicide Precautions per unit protocol, Encourage participation in unit milieu, Group Therapy, Monitor sleep, Monitor appetite Risks, benefits, side effects, alternatives discussed w/pt: Yes Patient agreeable to treatment: Yes Qualifiers: Active/Remission status: currently active Current bipolar episode type: mixed Current episode severity: moderate Qualified Code(s): F31.62 - Bipolar disorder, current episode mixed, moderate Consult Discharge Plan - Plan Referrals: NONE,PCP [Primary Care Provider] - Psychiatry Exam - Constitutional Vitals: Temp Pulse Resp BP Pulse Ox 98.1 F 96 18 111/83 96 11/19/17 09:00 11/19/17 09:00 11/19/17 09:00 11/19/17 09:00 11/18/17 16:24 General appearance: age & developmentally appropriate, well-groomed, well- nourished - Musculoskeletal Gait: normal Station: relaxed Strength & Tone: normal for patient - Psychiatric Patient Orientation: Yes Person, Yes Time, Yes Place Level of alertness: Alert Behavior: calm, cooperative Psychomotor activity: Normal Eye Contact: Maintains Eye Contact Mood Description: Euthymic/stable, Depressed Affect description: congruent with mood, full range Speech Volume: Normal Speech pattern: normal rate, normal rhythm, normal tone, fluent, spontaneous Language & Vocabulary: consistent with education Thought Process: Linear, Goal Oriented Thought Content: Yes Suicidal ideation (passive, fleeting), No Homicidal ideation, No Overt delusions Perceptual Disturbances: No Auditory hallucinations, No Visual hallucinations Attention Span Ability: Capable of Focused Attention Memory Description: Grossly Intact Patient Reliability: Reliable Historian Fund of knowledge: Yes abstraction ability, Yes aware of current events Intelligence Estimate: Average Judgment: Limited Insight: Partial
[2017-11-20] MEDS: Nicotine 14 MG PATCH.TD24 TD SCH (09:07)
[2017-11-20] MEDS: Gabapentin 400 MG CAPSULE PO SCH ×3 (09:08→20:34)
[2017-11-20] MEDS: Venlafaxine XR (24 HR) 37.5 MG CAP.ER.24H PO SCH (09:08)
[2017-11-20] MEDS: hydrOXYzine pamoate 25 MG CAPSULE PO PRN (10:26)
--- NOTE | 2017-11-20 17:21 | Psychiatry Progress Note ---
Date of Encounter: 11/20/17 Time of Encounter: 17:00 Subjective Interval history: The patient is known to me for previous hospitalization. Chief complaint my depressions doing worse on the Effexor. I stopped the Suboxone and was in [facility] and I was dropped from 16-0 in within 5 days. History of present illness. The patient was admitted or major depression with psychosis and while he does have depressive symptoms the psychosis is hearing the voice of a poor calling to him. This voice may been present for a long time and has been the focus of previous treatment I previously recommended Haldol Decanoate to treat the voice and the patient declined the injection. The patient is also declined the injection for vivid trauma but is willing to consider naltrexone in his medication assisted treatment for opiate dependence. 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 Thus the diagnosis of major depression with psychosis is not the primary and predominant reason for the hospitalization but is the primary admission diagnosis. That being said the patient is on Effexor venlafaxine. This accounts for the false positive reading of PCP and the patient's urine. Pristiq may also give a false positive for PCP in the urine so that should be noted. The patient has hepatitis C he is seeking treatment. He has been told to avoid the NALTRREXONE injection this is in part because he has cysts on his kidneys and should he need emergent surgery this would interfere with anesthesia and analgesia I told the patient that the following discharge plan should be made. 1 at the time of discharge [facility] for naltrexone 25 mg every afternoon for 2 nights then 50 mg every afternoon 2. The patient should be switched to Pristiq, dESvenlafaxine, at a dose of 50 mg per day. This medicine is not on the formulary. Pristiq could be prescribed on an outpatient basis the patient should stop the Effexor on day 1 and begin the Pristiq on day 2. Another alternative treatment is feTZIME, LEVOMILNICIPRAN< 's medicine is safe for the liver and to be dosed in 20 mg up to 80 or 120 mg per day. It may help with the patient's chronic pain. 3 patient should follow-up at [facility]. He has not been fully compliant with his treatment. The patient may benefit from follow-up there with [id number] interviews. The patient does not like tele-psychiatry and may seek another provider. 4. Patient was advised that sobriety is a goal of [facility] treatment. Review of Systems Psychiatric: Reports: depression, anxiety, abnormal sleep pattern, suicidal ideation, change in appetite, difficulty concentrating, mood swings Results - Vital Signs Vital Signs: Temp Pulse Resp BP Pulse Ox 98.2 F 99 18 114/86 96 11/20/17 09:00 11/20/17 09:00 11/20/17 09:00 11/20/17 09:00 11/18/17 16:24 Assessment and Plan (1) Opioid dependence with opioid-induced mood disorder Current visit: Yes Status: Resolved Plan: Continue hospitalization, Suicide Precautions per unit protocol Risks, benefits, side effects, alternatives discussed w/pt: Yes Patient agreeable to treatment: Yes (2) Opioid dependence with withdrawal Current visit: Yes Status: Acute Plan: Continue hospitalization, Close observation Risks, benefits, side effects, alternatives discussed w/pt: Yes Patient agreeable to treatment: Yes (3) Severe recurrent major depressive disorder with psychotic symptoms Current visit: No Status: Acute Plan: Continue hospitalization, Close observation, Suicide Precautions per unit protocol, Encourage participation in unit milieu Risks, benefits, side effects , alternatives discussed w/pt: Yes Patient agreeable to treatment: Yes (4) Acute hepatitis C without hepatic coma Current visit: No Status: Chronic Plan: Continue hospitalization, Close observation, Monitor appetite Risks, benefits, side effects, alternatives discussed w/pt: Yes Patient agreeable to treatment: Yes Consult Discharge Plan - Plan Referrals: NONE,PCP [Primary Care Provider] - Psychiatry Exam - Constitutional Vitals: Temp Pulse Resp BP Pulse Ox 98.2 F 99 18 114/86 96 11/20/17 09:00 11/20/17 09:00 11/20/17 09:00 11/20/17 09:00 11/18/17 16:24 General appearance: age & developmentally appropriate, well-groomed, well- nourished - Musculoskeletal Gait: normal Station: relaxed Strength & Tone: normal for patient - Psychiatric Patient Orientation: Yes Person, Yes Time, Yes Place Level of alertness: Alert Behavior: calm, cooperative Psychomotor activity: Normal Eye Contact: Maintains Eye Contact Mood Description: Depressed Affect description: dysphoric Speech Volume: Normal Speech pattern: normal rate, normal rhythm, normal tone, fluent, spontaneous Language & Vocabulary: consistent with education Thought Process: Linear, Goal Oriented Thought Content: Yes Suicidal ideation, No Homicidal ideation, No Overt delusions Perceptual Disturbances: Yes Auditory hallucinations, No Visual hallucinations Attention Span Ability: Capable of Focused Attention Memory Description: Grossly Intact Fund of knowledge: Yes aware of current events Intelligence Estimate: Average Judgment: Limited Insight: Minimal
[2017-11-21] MEDS: hydrOXYzine pamoate 25 MG CAPSULE PO PRN (03:27)
[2017-11-21] MEDS: Nicotine 14 MG PATCH.TD24 TD SCH (08:41)
[2017-11-21] MEDS: Venlafaxine XR (24 HR) 37.5 MG CAP.ER.24H PO SCH (08:41)
[2017-11-21] MEDS: Gabapentin 400 MG CAPSULE PO SCH ×3 (08:41→22:51)
--- NOTE | 2017-11-21 12:35 | Psychiatry Progress Note ---
Date of Encounter: 11/21/17 Time of Encounter: 11:35 Subjective Interval history: Pt is a 56 yo ,, male, never , with no children, who presents for exacerbation of Bipolar D/O type 1 currently mixed state with suicidal ideations . Pt noted he currently lives in [place], [place] alone. Pt noted recent exacerbation of depression. Pt noted "when I came in I thought I wanted to hurt myself I had a bunch of sleeping pills sitting out." Pt noted he was feeling better but it plateaued. I feel safe and comfortable on the unit. Pt denied any side effects to current medications. Pt continues to remain in agreement with current treatment plan. Pt noted that he is doing alright today. Pt noted he slept 6-8 hours broken night. Pt noted his appetite is its down. Pt rated his depression a 6, on a scale of zero to ten with ten being the worst and zero being none. Pt rate his anxiety a 8, on the same scale. Pt denied any auditory or visual hallucinations. Pt denied any current thoughts to anyone else. 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 Pt denied any hx of seizures or HIV. No TD noted, AIMS=0 Assessment/Plan 1.Interval hx 2.Continue current medications 3.Review current labs 4.Pt had an opportunity to ask questions and discuss current treatment plan. 5.Supportive therapy was provided 6.Pt encouraged to consider group or individual therapy 7.Pt was in agreement with treatment plan. 8.Pt was educated on the risks benefits and side effects of current medications. 9. Increase venlafaxine to 150 mg PO everyday Review of Systems Constitutional: Denies: fever, chills, weakness, weight change Eyes: Denies: eye pain, vision change Ears, Nose, Throat: Denies: ear pain, throat pain, dental pain, hearing loss, congestion Cardiovascular: Denies: chest pain, palpitations, dyspnea on exertion Respiratory: Denies: cough, dyspnea, wheezes Gastrointestinal: Denies: abdominal pain, nausea, vomiting, diarrhea, constipation Musculoskeletal: Denies: joint swelling, joint pain Neurological: Denies: headache, weakness, numbness, memory loss Psychiatric: Reports: depression, anxiety, abnormal sleep pattern, suicidal ideation, change in appetite, difficulty concentrating, mood swings Results - Vital Signs Vital Signs: Temp Pulse Resp BP Pulse Ox 98.1 F 90 18 114/82 96 11/21/17 09:00 11/21/17 09:00 11/21/17 09:00 11/21/17 09:00 11/18/17 16:24 Assessment and Plan (1) Suicidal ideation Current visit: Yes Status: Acute Plan: Continue hospitalization, Close observation, Suicide Precautions per unit protocol, Encourage participation in unit milieu, Group Therapy, Monitor sleep, Monitor appetite Risks, benefits, side effects, alternatives discussed w/pt: Yes Patient agreeable to treatment: Yes (2) Bipolar disorder Current visit: Yes Status: Acute Plan: Continue hospitalization, Close observation, Suicide Precautions per unit protocol, Encourage participation in unit milieu, Group Therapy, Monitor sleep, Monitor appetite Risks, benefits, side effects, alternatives discussed w/pt: Yes Patient agreeable to treatment: Yes Qualifiers: Active/Remission status: currently active Current bipolar episode type: mixed Current episode severity: moderate Qualified Code(s): F31.62 - Bipolar disorder, current episode mixed, moderate Consult Discharge Plan - Plan Referrals: NONE,PCP [Primary Care Provider] - Psychiatry Exam - Constitutional Vitals: Temp Pulse Resp BP Pulse Ox 98.1 F 90 18 114/82 96 11/21/17 09:00 11/21/17 09:00 11/21/17 09:00 11/21/17 09:00 11/18/17 16:24 General appearance: age & developmentally appropriate, well-groomed, well- nourished - Musculoskeletal Gait: normal Station: relaxed Strength & Tone: normal for patient - Psychiatric Patient Orientation: Yes Person, Yes Time, Yes Place Level of alertness: Alert Behavior: calm, cooperative Psychomotor activity: Normal Eye Contact: Maintains Eye Contact Mood Description: Euthymic/stable Affect description: congruent with mood, dysphoric Speech Volume: Normal Speech pattern: normal rate, normal rhythm, normal tone, fluent, spontaneous Language & Vocabulary: consistent with education Thought Process: Linear, Goal Oriented Thought Content: No Suicidal ideation, No Homicidal ideation, No Overt delusions Perceptual Disturbances: No Auditory hallucinations, No Visual hallucinations Attention Span Ability: Capable of Focused Attention Memory Description: Grossly Intact Patient Reliability: Reliable Historian Fund of knowledge: Yes abstraction ability, Yes aware of current events Intelligence Estimate: Average Judgment: Limited Insight: Partial
[2017-11-21] MEDS: hydrOXYzine pamoate 25 MG CAPSULE PO SCH ×2 (14:40→22:51)
[2017-11-22] MEDS: Nicotine 14 MG PATCH.TD24 TD SCH (08:56)
[2017-11-22] MEDS: Gabapentin 400 MG CAPSULE PO SCH ×3 (08:57→21:01)
[2017-11-22] MEDS: hydrOXYzine pamoate 25 MG CAPSULE PO SCH ×3 (08:57→21:00)
[2017-11-22] MEDS: Venlafaxine XR (24 HR) 150 MG CAP.ER.24H PO SCH (08:57)
--- NOTE | 2017-11-22 17:59 | Psychiatry Progress Note ---
Date of Encounter: 11/22/17 Time of Encounter: 11:45 Subjective Interval history: Pt is a 56 yo ,, male, never , with no children, who presents for exacerbation of Bipolar D/O type 1 currently mixed state with suicidal ideations . Pt noted he currently lives in [place], [place] alone. Pt noted recent exacerbation of depression. Pt noted " I am feeling better now.....I am ready for discharge." Pt noted he was feeling better, and felt safe and comfortable on the unit. Pt denied any side effects to current medications. Pt was in agreement for D/C home tomorrow. Pt continues to remain in agreement with current treatment plan. Pt noted that he is doing alright today. Pt noted he slept 6-8 hours broken night. Pt noted his appetite is okay Pt rated his depression a 5, on a scale of zero to ten with ten being the worst and zero being none. Pt rate his anxiety a 5, on the same scale. Pt denied any auditory or visual hallucinations. Pt denied any current thoughts to harm himself or anyone else. 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 Pt denied any hx of seizures or HIV. No TD noted, AIMS=0 Assessment/Plan 1.Interval hx 2.Continue current medications 3.Review current labs 4.Pt had an opportunity to ask questions and discuss current treatment plan. 5.Supportive therapy was provided 6.Pt encouraged to consider group or individual therapy 7.Pt was in agreement with treatment plan. 8.Pt was educated on the risks benefits and side effects of current medications. 9. Start doxepin 25 mg PO QHS for insomina 10. Coordinate for discharge tomorrow. 11. Follow up with out pt appointment. Review of Systems Constitutional: Denies: fever, chills, weakness, weight change Eyes: Denies: eye pain, vision change Ears, Nose, Throat: Denies: ear pain, throat pain, dental pain, hearing loss, congestion Cardiovascular: Denies: chest pain, palpitations, dyspnea on exertion Respiratory: Denies: cough, dyspnea, wheezes Gastrointestinal: Denies: abdominal pain, nausea, vomiting, diarrhea, constipation Musculoskeletal: Denies: joint swelling, joint pain Neurological: Denies: headache, weakness, numbness, memory loss Psychiatric: Reports: depression, anxiety, abnormal sleep pattern, suicidal ideation, change in appetite, difficulty concentrating, mood swings Results - Vital Signs Vital Signs: Temp Pulse Resp BP Pulse Ox 98.6 F 93 18 128/87 96 11/22/17 09:00 11/22/17 09:00 11/22/17 09:00 11/22/17 09:00 11/18/17 16:24 Assessment and Plan (1) Suicidal ideation Current visit: Yes Status: Acute Plan: Continue hospitalization, Close observation, Suicide Precautions per unit protocol, Encourage participation in unit milieu, Group Therapy, Monitor sleep, Monitor appetite Risks, benefits, side effects, alternatives discussed w/pt: Yes Patient agreeable to treatment: Yes (2) Bipolar disorder Current visit: Yes Status: Acute Plan: Continue hospitalization, Close observation, Suicide Precautions per unit protocol, Encourage participation in unit milieu, Group Therapy, Monitor sleep, Monitor appetite Risks, benefits, side effects, alternatives discussed w/pt: Yes Patient agreeable to treatment: Yes Qualifiers: Active/Remission status: currently active Current bipolar episode type: mixed Current episode severity: moderate Qualified Code(s): F31.62 - Bipolar disorder, current episode mixed, moderate Consult Discharge Plan - Plan Referrals: [facility] [Outside] - 11/23/17 1:00 pm (The above appointment is with Harmony Ruffin for outpatient mental health and substance abuse counseling services. You will also resume dual diagnosis groups weekly on discharge.) Arabella Garcia [Advanced Practice Nurse] - 11/29/17 2:00 pm (The above appointment is with Arabella Garcia's nurse. You will also see Arabella Garcia for primary healthcare and medication management services on 12/21/2017 at 10:30 AM. ) Psychiatry Exam - Constitutional Vitals: Temp Pulse Resp BP Pulse Ox 98.6 F 93 18 128/87 96 11/22/17 09:00 11/22/17 09:00 11/22/17 09:00 11/22/17 09:00 11/18/17 16:24 General appearance: age & developmentally appropriate, well-groomed, well- nourished - Musculoskeletal Gait: normal Station: relaxed Strength & Tone: normal for patient - Psychiatric Patient Orientation: Yes Person, Yes Time, Yes Place Level of alertness: Alert Behavior: calm, cooperative Psychomotor activity: Normal Eye Contact: Maintains Eye Contact Mood Description: Euthymic/stable Affect description: congruent with mood, full range Speech Volume: Normal Speech pattern: normal rate, normal rhythm, normal tone, fluent, spontaneous Language & Vocabulary: consistent with education Thought Process: Linear, Goal Oriented Thought Content: No Suicidal ideation, No Homicidal ideation, No Overt delusions Perceptual Disturbances: No Auditory hallucinations, No Visual hallucinations Attention Span Ability: Capable of Focused Attention Memory Description: Grossly Intact Patient Reliability: Reliable Historian Fund of knowledge: Yes abstraction ability, Yes aware of current events Intelligence Estimate: Average Judgment: Limited Insight: Partial
[2017-11-23] MEDS: Venlafaxine XR (24 HR) 150 MG CAP.ER.24H PO SCH (08:11)
[2017-11-23] MEDS: hydrOXYzine pamoate 25 MG CAPSULE PO SCH (08:11)
[2017-11-23] MEDS: Nicotine 14 MG PATCH.TD24 TD SCH (08:11)
[2017-11-23] MEDS: Gabapentin 400 MG CAPSULE PO SCH (08:11)
--- NOTE | 2017-11-23 08:47 | Discharge Summary ---
Date of Encounter: 11/23/17 Time of Encounter: 07:30 Diagnosis - Discharge Diagnosis (1) Suicidal ideation Status: Acute (2) Bipolar disorder Status: Acute Qualifiers: Active/Remission status: currently active Current bipolar episode type: mixed Current episode severity: moderate Qualified Code(s): F31.62 - Bipolar disorder, current episode mixed, moderate Medications - Discharge Medications Prescriptions: Doxepin [Sinequan] 25 mg PO HS #30 capsule Fluphenazine [Prolixin] 5 mg PO HS 30 Days #30 tablet Gabapentin [Neurontin] 800 mg PO TID #30 tablet Venlafaxine XR (24 HR) [Effexor Xr] 150 mg PO DAILY #30 cap.er.24h hydrOXYzine pamoate [HydrOXYzine Pamoate] 25 mg PO TID PRN capsule 07/07/17 [Rx ] Amitriptyline [Elavil] 50 mg PO HS 11/18/17 [History] Venlafaxine XR (24 HR) [Effexor Xr] 112.5 mg PO DAILY 11/18/17 [History] Doxepin [Sinequan] 25 mg PO HS #30 capsule 11/23/17 [Rx] Fluphenazine [Prolixin] 5 mg PO HS 30 Days #30 tablet 11/23/17 [Rx] Gabapentin [Neurontin] 800 mg PO TID #30 tablet 11/23/17 [Rx] Venlafaxine XR (24 HR) [Effexor Xr] 150 mg PO DAILY #30 cap.er.24h 11/23/17 [Rx] 3 Allergy/AdvReac Type Severity Reaction Status Date / Time quetiapine [From Seroquel] AdvReac Mild Itching Verified 11/18/17 15:58 trazodone AdvReac Mild Itching Verified 11/18/17 18:52 Provider Date of admission: 11/18/17 16:54 Primary care physician: PCP NONE Discharging clinician: Srinivas Lakhani Psychiatry Exam - Constitutional Vitals: Temp Pulse Resp BP Pulse Ox 97.8 F 87 18 103/77 96 11/22/17 20:06 11/22/17 20:06 11/22/17 20:06 11/22/17 20:06 11/18/17 16:24 General appearance: age & developmentally appropriate, well-groomed, well- nourished - Musculoskeletal Gait: normal Station: relaxed Strength & Tone: normal for patient - Psychiatric Patient Orientation: Yes Person, Yes Time, Yes Place Level of alertness: Alert Behavior: calm, cooperative Psychomotor activity: Normal Eye Contact: Maintains Eye Contact Mood Description: Euthymic/stable Affect description: congruent with mood, full range Speech Volume: Normal Speech pattern: normal rate, normal rhythm, normal tone, fluent, spontaneous Language & Vocabulary: consistent with education Thought Process: Linear, Goal Oriented Thought Content: No Suicidal ideation, No Homicidal ideation, No Overt delusions Perceptual Disturbances: No Auditory hallucinations, No Visual hallucinations Attention Span Ability: Capable of Focused Attention Memory Description: Grossly Intact Patient Reliability: Reliable Historian Fund of knowledge: Yes abstraction ability, Yes aware of current events Intelligence Estimate: Average Judgment: Limited Insight: Partial Hospital Course Hospital course: Pt is a 56 yo ,, male, never , with no children, who presents for exacerbation of Bipolar D/O type 1 currently mixed state with suicidal ideations . Pt noted he currently lives in [place], [place] alone. Pt noted that he feels comfrotable discharging to his out pt mental health appointment. Pt denied any weapons in his home, pt noted he had two guns "but my cousin has them....I cant own guns I am a felon." Pt noted he feels he has improved since admission. Pt remains optimistic about discharge planning. Pt noted recent exacerbation of depression. Pt noted " I am feeling better now.....I am ready for discharge." Pt noted he was feeling better, and felt safe and comfortable on the unit. Pt denied any side effects to current medications. Pt was in agreement for D/C home today. Pt continues to remain in agreement with current treatment plan. Pt noted that he is doing alright today. Pt noted he slept 6-8 hours night. Pt noted his appetite is okay Pt rated his depression a 3, on a scale of zero to ten with ten being the worst and zero being none. Pt rate his anxiety a 4, on the same scale. Pt denied any auditory or visual hallucinations. Pt denied any current thoughts to harm himself or anyone else. 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 Pt denied any hx of seizures or HIV. No TD noted, AIMS=0 Assessment/Plan 1.Interval hx 2.Continue current medications 3.Review current labs 4.Pt had an opportunity to ask questions and discuss current treatment plan. 5.Supportive therapy was provided 6.Pt encouraged to consider group or individual therapy 7.Pt was in agreement with treatment plan. 8.Pt was educated on the risks benefits and side effects of current medications. 9. take all medication as prescribed 10. Coordinate for discharge tomorrow. 11. Follow up with out pt appointment at [facility] upon discharge. 12. abstain from any alcohol or illict substances. Time spent discussing smoking cessation with patient: 3 to 10 minutes Does patient wish to continue nicotine replacement upon disc: No - Time Spent with Patient Total time spent providing and/or coordinating discharge services: Greater than 30 minutes Assessment and Plan - Patient/Caregiver Discharge Instructions Activity: resume usual activities as tolerated Diet: regular diet - Follow up Plan Follow up with: Brand[facility] Rig[facility] [Outside] - 11/23/17 1:00 pm (The above appointment is with Harmony Ruffin for outpatient mental health and substance abuse counseling services. You will also resume dual diagnosis groups weekly on discharge.) Arabella Garcia [Advanced Practice Nurse] - 11/29/17 2:00 pm (The above appointment is with Arabella Garcia's nurse. You will also see Arabella Garcia for primary healthcare and medication management services on 12/21/2017 at 10:30 AM. ) Overall status at discharge: Stable Disposition: Home, Self-Care Quality - Multiple Antipsychotics Patient discharged on 2 or more antipsychotic medications: No - Justification Documentation of: No documentation of justification (PT is not on two antipsychotics) Procedures - Procedures Procedures: Medication Management, Crisis Stabilization, Supportive Therapy, Group Therapy, Psychoeducational Therapy
[2017-11-23 09:01] VITALS: BP 109/79
[2017-11-24 18:35] LABS: Phencyclidine Screen,Urine Negative ng/mL (Cutoff=25)
== END 2017-11-23 11:30 | disposition home or self-care (01) | DRG 753 ==
LOC: EMEROO 10:52 → SUATTDRO 16:54 → 1ANU 16:54
PROVIDERS: ADMIT General Practice; ATTEND Psychiatry & Neurology Forensic Psychiatry